=== PATIENT | female | born 1950 | race Caucasian/White ===

== ENCOUNTER 2021-11-20 05:50 | Inpatient (IN) | payer OTHER ==
[~2021-11-20] VITALS: Ht 162.6 cm; Wt 86.1 kg
[2021-11-20] MEDS ORDERED: ALBUTEROL SULF 2.5 MG/0.5ML(0.5%) NEB SOLN NEB ONE (06:15)
[2021-11-20] MEDS ORDERED: IPRATROPIUM BROM 0.5 MG/2.5ML INH SOL NEB ONE (06:15)
[2021-11-20] MEDS ORDERED: methylPREDNISolone SOD SUCC 125 MG/2 ML VL IV ONE (06:45)
[2021-11-20 07:22] LABS: Basophils # (auto) 0 10 ^3/uL (0-0.2); Basophils % (auto) 0.6 % (0.0-2.0); Eosinophils # (auto) 0 10 ^3/uL (0-0.8); Eosinophils % (auto) 0.3 % (0.0-7.0); Hematocrit 42.5 % (36.0-46.0); Hemoglobin 14.3 g/dL (12.2-16.2); Lymphocytes # (auto) 1.5 10 ^3/uL (0.4-5.4); Lymphocytes % (auto) 20.5 % (10.0-50.0); Mean Corpuscular Hemoglobin 30.5 pg (28.0-32.0); Mean Corpuscular Hgb Conc. 33.8 g/dL (32.0-36.0); Mean Corpuscular Volume 90.2 fL (80.0-100.0); Monocytes # (auto) 0.4 10 ^3/uL (0-1.3); Monocytes % (auto) 5.6 % (0.0-12.0); Neutrophils # (auto) 5.5 10 ^3/uL (1.6-8.6); Nucleated Red Blood Cells % 0.1 %; Red Blood Cells 4.71 10^6/uL (4.0-5.20); Red Cell Distribution Width 14.9 % (11.8-14.3); White Blood Cell 7.6 10^3/uL (4.4-10.8)
[2021-11-20 07:52] LABS: Albumin 2.9 g/dL (3.4-5.0); Calcium 8.1 mg/dL (8.5-10.1)
[2021-11-20 07:54] LABS: BUN/Creatinine Ratio 16.4; Bilirubin, Total 0.2 mg/dL (0.2-1.0); Total Protein 6.2 g/dL (6.4-8.2)
[2021-11-20] MEDS ORDERED: NOREPINEPHRINE 8 MG/250ML KIT 250 ML IV SCH (09:45)
[2021-11-20] MEDS ORDERED: MORPHINE SULFATE 4 MG/ML SYR/VIAL IV ONE (10:00)
[2021-11-20] MEDS ORDERED: ONDANSETRON HCL 4 MG/2 ML VIAL IV ONE (10:00)
[2021-11-20] MEDS ORDERED: ENOXAPARIN SOD 100 MG/1 ML SYRINGE SC ONE (10:00)
[2021-11-20] MEDS ORDERED: ONDANSETRON HCL 4 MG/2 ML VIAL IV PRN (11:30)
[2021-11-20] MEDS ORDERED: NITROGLYCERIN 0.2MG/HR TOPICAL PATCH TD ONE (11:30)
[2021-11-20] MEDS ORDERED: AZITHROMYCIN 500MG/ 250ML 250 ML IV ONE (11:30)
[2021-11-20] MEDS ORDERED: SODIUM CHLORIDE 0.9% 1,000 ML IV ONE (11:30)
[2021-11-20] MEDS ORDERED: MORPHINE SULFATE INJECTION 2 MG/ML SYRG IV PRN ×2 (11:30→13:45)
[2021-11-20] MEDS ORDERED: NITROGLYCERIN 0.4 MG SL TAB SL PRN (11:30)
[2021-11-20] MEDS ORDERED: NICOTINE 21MG/24 HR TOPICAL PATCH TD ONE (11:30)
[2021-11-20] MEDS ORDERED: cefTRIAXone 1GM/50ML D5W 50 ML IV ONE (11:30)
[2021-11-20] MEDS: IPRATROPIUM BROM 0.5 MG/2.5ML INH SOL NEB SCH ×2 (12:09→17:21)
[2021-11-20] MEDS: ALBUTEROL SULF 2.5 MG/0.5ML(0.5%) NEB SOLN NEB PRN ×2 (12:09→17:21)
[2021-11-20 12:19] VITALS: BP 144/79
[2021-11-20 12:35] LABS: Cholesterol 147 mg/dL (< 200); Triglycerides 126 mg/dL (< 150)
[2021-11-20 12:38] LABS: HDL Cholesterol 63 mg/dL (40-59); LDL Cholesterol 70 mg/dL (< 100)
[2021-11-20] MEDS: MORPHINE SULFATE INJECTION 2 MG/ML SYRG IV PRN ×2 (13:50→20:59)
[2021-11-20] MEDS ORDERED: FUROSEMIDE 100 MG/10ML VIAL IV ONE (15:15)
[2021-11-20 18:24] LABS: Urine Bacteria FEW /hpf (None Seen); Urine Blood Negative /uL (Negative); Urine Specific Gravity 1.014 (1.001-1.035); Urine WBC 1 /hpf (0 - 5)
[2021-11-21] MEDS: MORPHINE SULFATE INJECTION 2 MG/ML SYRG IV PRN ×6 (01:21→21:52)
[2021-11-21 05:00] VITALS: BP 152/84
[2021-11-21 05:30] VITALS: BP 152/84
[2021-11-21] MEDS ORDERED: FLUO40CA PO (06:01)
[2021-11-21] MEDS ORDERED: PENT100C PO (06:01)
[2021-11-21] MEDS ORDERED: GABA-339 PO (06:01)
[2021-11-21] MEDS ORDERED: FUR20T PO (06:01)
[2021-11-21] MEDS ORDERED: LEVO137T3 PO (06:01)
[2021-11-21] MEDS ORDERED: PERCOT PO (06:01)
[2021-11-21] MEDS ORDERED: DICL75TA4 PO (06:01)
[2021-11-21] MEDS ORDERED: BUDE0.5S NEB (06:01)
[2021-11-21] MEDS ORDERED: POTA-180 PO (06:01)
[2021-11-21] MEDS ORDERED: FLUT50SP NAS (06:01)
[2021-11-21] MEDS ORDERED: ONDA-180 PO (06:01)
[2021-11-21] MEDS ORDERED: SACU1TAB PO (06:01)
[2021-11-21] MEDS ORDERED: CARV12.544 PO (06:01)
[2021-11-21] MEDS ORDERED: ATOR-47 PO (06:01)
[2021-11-21] MEDS: ALBUTEROL SULF 2.5 MG/0.5ML(0.5%) NEB SOLN NEB PRN ×2 (07:20→18:28)
[2021-11-21] MEDS: IPRATROPIUM BROM 0.5 MG/2.5ML INH SOL NEB SCH ×3 (07:20→18:28)
[2021-11-21 07:58] LABS: Basophils # (auto) 0 10 ^3/uL (0-0.2); Basophils % (auto) 0.3 % (0.0-2.0); Eosinophils # (auto) 0 10 ^3/uL (0-0.8); Eosinophils % (auto) 0.1 % (0.0-7.0); Lymphocytes # (auto) 1.4 10 ^3/uL (0.4-5.4); Lymphocytes % (auto) 17.3 % (10.0-50.0); Mean Corpuscular Hemoglobin 30.8 pg (28.0-32.0); Mean Corpuscular Hgb Conc. 34.1 g/dL (32.0-36.0); Mean Corpuscular Volume 90.3 fL (80.0-100.0); Monocytes # (auto) 0.3 10 ^3/uL (0-1.3); Monocytes % (auto) 4.2 % (0.0-12.0); Neutrophils # (auto) 6.3 10 ^3/uL (1.6-8.6); Neutrophils % (auto) 78.1 % (37.0-80.0); Nucleated Red Blood Cells % 0.1 %; Red Blood Cells 4.54 10^6/uL (4.0-5.20); Red Cell Distribution Width 14.9 % (11.8-14.3)
[2021-11-21] MEDS ORDERED: ADENOSINE 73 MG in GIVE UN-DILUTED 0 ML IV ONE (08:00)
[2021-11-21 09:02] VITALS: BP 150/84
[2021-11-21 09:10] LABS: BUN/Creatinine Ratio 19.6; Bilirubin, Total 0.2 mg/dL (0.2-1.0); Total Protein 6.6 g/dL (6.4-8.2)
[2021-11-21] MEDS ORDERED: REGADENOSON 0.4 MG/5 ML SYRG IV ONE ×2 (09:45→09:51)
[2021-11-21] MEDS ORDERED: ENOXAPARIN SOD 100 MG/1 ML SYRINGE SC SCH (10:00)
[2021-11-21] MEDS ORDERED: CARVEDILOL 12.5 MG TAB PO SCH (10:00)
[2021-11-21] MEDS ORDERED: methylPREDNISolone SOD SUCC 40 MG/ML VL IV ONE (11:30)
[2021-11-21] MEDS: cefTRIAXone 1GM/50ML D5W 50 ML IV SCH (11:35)
[2021-11-21] MEDS: NICOTINE 21MG/24 HR TOPICAL PATCH TD SCH (11:35)
[2021-11-21] MEDS: ASPirin 81 mg TAB PO SCH (11:37)
[2021-11-21] MEDS: AMIODARONE HCL 200 MG TAB PO SCH ×2 (11:39→21:42)
[2021-11-21] MEDS ORDERED: FUROSEMIDE 20 MG/2 ML VIAL IV ONE (12:30)
[2021-11-21] MEDS: AZITHROMYCIN 500MG/ 250ML 250 ML IV SCH (12:45)
[2021-11-21 13:30] VITALS: BP 156/91
[2021-11-21 16:20] VITALS: BP 122/63
[2021-11-21] MEDS: CARVEDILOL 12.5 MG TAB PO SCH (21:42)
[2021-11-21] MEDS: PATIENTS OWN MEDICATION PO SCH ×2 (21:47→22:00)
[2021-11-21 22:00] VITALS: BP 132/52
[2021-11-21] MEDS ORDERED: ATORVASTATIN 20 MG TAB PO SCH (22:00)
[2021-11-21] MEDS ORDERED: SACUBITRIL-VALSARTAN 24mg/26mg TAB EACH EAR SCH (22:00)
[2021-11-22] MEDS: MORPHINE SULFATE INJECTION 2 MG/ML SYRG IV PRN ×2 (03:04→07:16)
[2021-11-22 05:00] VITALS: BP 142/64
[2021-11-22 06:03] LABS: Potassium 4.3 mmol/L (3.5-5.1)
[2021-11-22] MEDS: ALBUTEROL SULF 2.5 MG/0.5ML(0.5%) NEB SOLN NEB PRN ×2 (06:06→12:00)
[2021-11-22] MEDS: IPRATROPIUM BROM 0.5 MG/2.5ML INH SOL NEB SCH ×2 (06:06→12:00)
[2021-11-22 06:09] LABS: BUN/Creatinine Ratio 21.9; Calcium 8.6 mg/dL (8.5-10.1)
[2021-11-22] MEDS ORDERED: LEVOTHYROXINE SODIUM 50 MCG TAB PO SCH (07:00)
[2021-11-22 07:46] VITALS: BP 153/74
[2021-11-22] MEDS: ASPirin 81 mg TAB PO SCH (09:08)
[2021-11-22] MEDS: AMIODARONE HCL 200 MG TAB PO SCH (09:09)
[2021-11-22] MEDS: CARVEDILOL 12.5 MG TAB PO SCH (09:11)
[2021-11-22] MEDS: PATIENTS OWN MEDICATION PO SCH (09:12)
[2021-11-22] MEDS: NICOTINE 21MG/24 HR TOPICAL PATCH TD SCH (09:12)
[2021-11-22] MEDS: cefTRIAXone 1GM/50ML D5W 50 ML IV SCH (09:13)
[2021-11-22] MEDS ORDERED: predniSONE 20 MG TAB PO SCH (10:00)
[2021-11-22] MEDS ORDERED: methylPREDNISolone SOD SUCC 40 MG/ML VL IV SCH (10:00)
[2021-11-22] MEDS ORDERED: FLUoxetine HCL 20 MG CAP PO SCH (10:00)
[2021-11-22] MEDS: AZITHROMYCIN 500MG/ 250ML 250 ML IV SCH (10:15)
[2021-11-22] MEDS ORDERED: METH4PAK PO (11:22)
[2021-11-22] MEDS ORDERED: DOXY-338 PO (11:22)
[2021-11-22] MEDS ORDERED: AMIO200T33 PO (11:22)
[2021-11-22] MEDS ORDERED: APIX5TAB PO (11:22)
[2021-11-22 12:35] VITALS: BP 112/58
[2021-11-22 13:00] VITALS: BP 112/58
== END 2021-11-22 14:25 | disposition home or self-care (01) | DRG 280 ==
LOC: EDBD 05:50 → ER 05:50 → OVERFLOW 11:27 → TELE-EAST 11-21 03:30
PROVIDERS: ADMIT Registered Nurse; ATTEND Internal Medicine
DX: I21.4 Non-ST elevation (NSTEMI) myocardial infarction (principal); N17.0 Acute kidney failure with tubular necrosis; I50.21 Acute systolic (congestive) heart failure; I13.0 Hypertensive heart and chronic kidney disease with heart failure and stage 1 through stage 4 chronic kidney disease, or unspecified chronic kidney disease; J44.1 Chronic obstructive pulmonary disease with (acute) exacerbation; D68.69 Other thrombophilia; J96.10 Chronic respiratory failure, unspecified whether with hypoxia or hypercapnia; N18.4 Chronic kidney disease, stage 4 (severe); I42.0 Dilated cardiomyopathy; I25.5 Ischemic cardiomyopathy; E66.9 Obesity, unspecified; E78.5 Hyperlipidemia, unspecified; E88.09 Other disorders of plasma-protein metabolism, not elsewhere classified; G62.9 Polyneuropathy, unspecified; I25.10 Atherosclerotic heart disease of native coronary artery without angina pectoris; E03.9 Hypothyroidism, unspecified; I48.0 Paroxysmal atrial fibrillation; R79.89 Other specified abnormal findings of blood chemistry; F17.210 Nicotine dependence, cigarettes, uncomplicated; Z79.01 Long term (current) use of anticoagulants; Z68.32 Body mass index [BMI] 32.0-32.9, adult; Z90.49 Acquired absence of other specified parts of digestive tract; Z98.61 Coronary angioplasty status
CPT/HCPCS: 36415; 71045; 78452; 80048; 80053; 80061; 81001; 83605; 83735; 83880; 84443; 84484; 85025; 85379; 87040; 93005; 93017; 93306; 93970; 94640; 94644; 96365; 96375; 99291; G0378; J0153; J0696; J2405

== ENCOUNTER 2021-12-08 09:10 | Inpatient (IN) | payer OTHER ==
[~2021-12-08] VITALS: Ht 160 cm; Wt 90.7 kg
[~2021-12-08 09:10] MED LIST: AMIO200T33 PO; APIX5TAB PO; ATOR-47 PO; BUDE0.5S NEB; CARV12.544 PO; DICL75TA4 PO; DOXY-338 PO; FLUO40CA PO; FLUT50SP NAS; FUR20T PO; GABA-339 PO; LEVO137T3 PO; METH4PAK PO; ONDA-180 PO; PENT100C PO; PERCOT PO; POTA-180 PO; SACU1TAB PO
[2021-12-08] MEDS ORDERED: methylPREDNISolone SOD SUCC 125 MG/2 ML VL IV ONE (11:45)
[2021-12-08] MEDS ORDERED: ALBUTEROL SULF 2.5 MG/0.5ML(0.5%) NEB SOLN NEB ONE (11:45)
[2021-12-08] MEDS ORDERED: HYDROcodone-ACET 10/325MG TAB PO ONE (12:30)
[2021-12-08] MEDS ORDERED: MORPHINE SULFATE INJ 2 MG/ml SYRG IV PRN (12:45)
[2021-12-08] MEDS ORDERED: NITROGLYCERIN 0.4 MG SL TAB SL PRN (12:45)
[2021-12-08 12:57] LABS: Basophils # (auto) 0.1 10 ^3/uL (0-0.2); Basophils % (auto) 0.7 % (0.0-2.0); Eosinophils # (auto) 0.1 10 ^3/uL (0-0.8); Eosinophils % (auto) 0.8 % (0.0-7.0); Hematocrit 41.3 % (36.0-46.0); Hemoglobin 13.9 g/dL (12.2-16.2); Lymphocytes # (auto) 0.9 10 ^3/uL (0.4-5.4); Lymphocytes % (auto) 10.6 % (10.0-50.0); Mean Corpuscular Hemoglobin 30.5 pg (28.0-32.0); Mean Corpuscular Hgb Conc. 33.8 g/dL (32.0-36.0); Mean Corpuscular Volume 90.2 fL (80.0-100.0); Monocytes # (auto) 0.4 10 ^3/uL (0-1.3); Monocytes % (auto) 5.1 % (0.0-12.0); Neutrophils # (auto) 7.2 10 ^3/uL (1.6-8.6); Neutrophils % (auto) 82.8 % (37.0-80.0); Red Blood Cells 4.58 10^6/uL (4.0-5.20); Red Cell Distribution Width 15.4 % (11.8-14.3); White Blood Cell 8.7 10^3/uL (4.4-10.8)
[2021-12-08 13:18] LABS: Potassium 5.3 mmol/L (3.5-5.1)
[2021-12-08 13:24] LABS: Albumin 2.7 g/dL (3.4-5.0); BUN/Creatinine Ratio 15.1; Bilirubin, Total 0.3 mg/dL (0.2-1.0); Total Protein 6.5 g/dL (6.4-8.2)
[2021-12-08 13:39] VITALS: BP 140/60
[2021-12-08 14:32] LABS: Calcium 8.5 mg/dL (8.5-10.1)
== END 2021-12-08 14:25 | disposition left against medical advice (07) | DRG 193 ==
LOC: EDBD 09:10 → ER 09:10 → EDUNIT# 09:10 → TELE 12:42
PROVIDERS: ADMIT Hospitalist; ATTEND Hospitalist
PROC: 5A09357 Assistance with Respiratory Ventilation, Less than 24 Consecutive Hours, Continuous Positive Airway Pressure (ICD-10-PCS; principal; 2021-12-08)
DX: J18.9 Pneumonia, unspecified organism (principal); I50.23 Acute on chronic systolic (congestive) heart failure; J96.20 Acute and chronic respiratory failure, unspecified whether with hypoxia or hypercapnia; N17.0 Acute kidney failure with tubular necrosis; J44.1 Chronic obstructive pulmonary disease with (acute) exacerbation; I13.0 Hypertensive heart and chronic kidney disease with heart failure and stage 1 through stage 4 chronic kidney disease, or unspecified chronic kidney disease; I25.10 Atherosclerotic heart disease of native coronary artery without angina pectoris; Z53.29 Procedure and treatment not carried out because of patient's decision for other reasons; F17.210 Nicotine dependence, cigarettes, uncomplicated; Z79.01 Long term (current) use of anticoagulants; Z79.51 Long term (current) use of inhaled steroids; Z79.899 Other long term (current) drug therapy; Z82.0 Family history of epilepsy and other diseases of the nervous system; Z90.710 Acquired absence of both cervix and uterus; Z95.5 Presence of coronary angioplasty implant and graft; Z90.49 Acquired absence of other specified parts of digestive tract; I25.5 Ischemic cardiomyopathy; I27.9 Pulmonary heart disease, unspecified; I48.0 Paroxysmal atrial fibrillation; N18.32 Chronic kidney disease, stage 3b
CPT/HCPCS: 36415; 36600; 71045; 80053; 82805; 84484; 85025; 93005; 94660; 96374; 99291; G0378

== ENCOUNTER 2021-12-10 02:13 | Inpatient (IN) | payer OTHER ==
[~2021-12-10] VITALS: Ht 160 cm; Wt 87.5 kg
[2021-12-10 03:02] LABS: Basophils # (auto) 0.1 10 ^3/uL (0-0.2); Basophils % (auto) 0.6 % (0.0-2.0); Eosinophils # (auto) 0.1 10 ^3/uL (0-0.8); Hematocrit 39.3 % (36.0-46.0); Hemoglobin 13.1 g/dL (12.2-16.2); Lymphocytes # (auto) 1.8 10 ^3/uL (0.4-5.4); Lymphocytes % (auto) 20.3 % (10.0-50.0); Mean Corpuscular Hemoglobin 30.5 pg (28.0-32.0); Mean Corpuscular Hgb Conc. 33.4 g/dL (32.0-36.0); Mean Corpuscular Volume 91.3 fL (80.0-100.0); Monocytes # (auto) 0.4 10 ^3/uL (0-1.3); Monocytes % (auto) 3.9 % (0.0-12.0); Neutrophils # (auto) 6.7 10 ^3/uL (1.6-8.6); Neutrophils % (auto) 74.2 % (37.0-80.0); Red Blood Cells 4.31 10^6/uL (4.0-5.20); Red Cell Distribution Width 15.5 % (11.8-14.3)
[2021-12-10 03:25] LABS: Albumin 2.8 g/dL (3.4-5.0); Calcium 8.7 mg/dL (8.5-10.1); Potassium 4.9 mmol/L (3.5-5.1)
[2021-12-10 03:28] LABS: Bilirubin, Total 0.2 mg/dL (0.2-1.0); Total Protein 6.4 g/dL (6.4-8.2)
[2021-12-10] MEDS ORDERED: MORPHINE SULFATE 4 MG/ML SYR/VIAL IV ONE (04:00)
[2021-12-10] MEDS ORDERED: ONDANSETRON HCL 4 MG/2 ML VIAL IV ONE (04:00)
[2021-12-10] MEDS ORDERED: IPRATROPIUM BROM 0.5 MG/2.5ML INH SOL NEB ONE (06:15)
[2021-12-10] MEDS ORDERED: D5W 5% IV ONE (06:15)
[2021-12-10] MEDS ORDERED: DEXAMETHASONE IV ONE (06:15)
[2021-12-10] MEDS ORDERED: ALBUTEROL SULF 2.5 MG/0.5ML(0.5%) NEB SOLN NEB ONE (06:15)
[2021-12-10] MEDS ORDERED: NITROGLYCERIN 0.4 MG SL TAB SL PRN (10:45)
[2021-12-10] MEDS ORDERED: MORPHINE SULFATE INJ 2 MG/ml SYRG IV PRN (10:45)
[2021-12-10] MEDS ORDERED: ENOXAPARIN SOD 80 MG/0.8ML SYRINGE SC ONE (10:45)
[2021-12-10] MEDS: MORPHINE SULFATE INJ 2 MG/ml SYRG IV PRN ×3 (11:43→20:45)
[2021-12-10] MEDS ORDERED: ACETAMINOPHEN 325 MG TAB PO PRN (12:15)
[2021-12-10] MEDS ORDERED: HYDROcodone-ACET 5/325MG TAB PO PRN (12:15)
[2021-12-10] MEDS ORDERED: DOCUSATE SOD 100 MG CAP PO PRN (12:15)
[2021-12-10] MEDS ORDERED: FUROSEMIDE 100 MG/10ML VIAL IV ONE (12:15)
[2021-12-10] MEDS ORDERED: hydrALAZINE HCL 20 MG/ML VL IV PRN (12:15)
[2021-12-10] MEDS ORDERED: PROMETHAZINE-DM 5 ML ORAL SYRUP PO PRN (12:15)
[2021-12-10 13:08] LABS: Magnesium 2.3 mg/dL (1.6-2.6); Phosphorus 2.5 mg/dL (2.5-4.90)
[2021-12-10 15:03] LABS: INR 1.04 (0.9-1.15); Partial Thromboplastin Time 31.1 sec (23.6-33.0)
[2021-12-10] MEDS: methylPREDNISolone SOD SUCC 40 MG/ML VL IV SCH ×2 (15:32→22:43)
[2021-12-10] MEDS: AZITHROMYCIN 500MG/ 250ML 250 ML IV SCH (15:54)
[2021-12-10] MEDS: IPRATROPIUM BROM 0.5 MG/2.5ML INH SOL NEB SCH ×3 (16:04→22:11)
[2021-12-10] MEDS: ALBUTEROL SULF 2.5 MG/0.5ML(0.5%) NEB SOLN NEB PRN ×2 (16:04→18:20)
[2021-12-10 16:06] VITALS: BP 172/84
[2021-12-10] MEDS: ONDANSETRON HCL 4 MG/2 ML VIAL IV PRN (16:38)
[2021-12-10] MEDS: BUDESONIDE (INHALATION) 0.5 MG/2 ML NEB NEB SCH (18:20)
[2021-12-10 21:53] VITALS: BP 129/75
[2021-12-10] MEDS ORDERED: AMIODARONE HCL 200 MG TAB PO SCH (22:00)
[2021-12-10] MEDS ORDERED: ISOSORBIDE MONONITRATE 20 MG TAB PO SCH (22:00)
[2021-12-10] MEDS: AMIODARONE HCL 200 MG TAB PO SCH (22:43)
[2021-12-10] MEDS: APIXABAN 5 MG TAB PO SCH (22:44)
[2021-12-10] MEDS: FLUTICASONE PROP NASAL SPR 0.05 % (50MCG) 16GM SCH (22:44)
[2021-12-10] MEDS: CARVEDILOL 3.125 MG TAB PO SCH (22:44)
[2021-12-10] MEDS: POTASSIUM CHL 20 Meq TABLET PO SCH (22:45)
[2021-12-10] MEDS: SACUBITRIL-VALSARTAN 24mg/26mg TAB PO SCH (22:45)
[2021-12-10] MEDS: ATORVASTATIN 20 MG TAB PO SCH (22:45)
[2021-12-11] MEDS: MORPHINE SULFATE INJ 2 MG/ml SYRG IV PRN ×4 (01:11→14:39)
[2021-12-11] MEDS: IPRATROPIUM BROM 0.5 MG/2.5ML INH SOL NEB SCH ×5 (02:02→21:57)
[2021-12-11 04:59] VITALS: BP 142/87
[2021-12-11] MEDS: methylPREDNISolone SOD SUCC 40 MG/ML VL IV SCH ×2 (05:50→14:39)
[2021-12-11] MEDS: FUROSEMIDE 20 MG/2 ML VIAL IV SCH ×2 (05:50→18:22)
[2021-12-11 06:03] LABS: Basophils # (auto) 0 10 ^3/uL (0-0.2); Eosinophils # (auto) 0 10 ^3/uL (0-0.8); Hematocrit 41.9 % (36.0-46.0); Hemoglobin 14.3 g/dL (12.2-16.2); Lymphocytes # (auto) 0.4 10 ^3/uL (0.4-5.4); Lymphocytes % (auto) 6.3 % (10.0-50.0); Mean Corpuscular Hgb Conc. 34.2 g/dL (32.0-36.0); Mean Corpuscular Volume 90.6 fL (80.0-100.0); Monocytes # (auto) 0 10 ^3/uL (0-1.3); Monocytes % (auto) 0.6 % (0.0-12.0); Neutrophils # (auto) 6.1 10 ^3/uL (1.6-8.6); Neutrophils % (auto) 93.1 % (37.0-80.0); Nucleated Red Blood Cells % 0.1 %; Red Blood Cells 4.63 10^6/uL (4.0-5.20); Red Cell Distribution Width 15.5 % (11.8-14.3); White Blood Cell 6.5 10^3/uL (4.4-10.8)
[2021-12-11 06:25] LABS: INR 1.02 (0.9-1.15)
[2021-12-11 06:28] LABS: Albumin 2.7 g/dL (3.4-5.0); BUN/Creatinine Ratio 20.4; Bilirubin, Total 0.3 mg/dL (0.2-1.0); CRP High Sensitivity 0.51 mg/dL (< 0.3); Calcium 8.9 mg/dL (8.5-10.1); Magnesium 2.2 mg/dL (1.6-2.6); Phosphorus 2.3 mg/dL (2.5-4.90); Total Protein 6.8 g/dL (6.4-8.2); Uric Acid 5.4 mg/dL (2.6-6.0)
[2021-12-11] MEDS ORDERED: LEVOTHYROXINE SODIUM 25 MCG TAB PO SCH (07:00)
[2021-12-11 09:00] VITALS: BP 125/75
[2021-12-11] MEDS: FLUTICASONE PROP NASAL SPR 0.05 % (50MCG) 16GM SCH ×2 (09:49→22:00)
[2021-12-11] MEDS: SACUBITRIL-VALSARTAN 24mg/26mg TAB PO SCH ×2 (09:50→21:59)
[2021-12-11] MEDS: APIXABAN 5 MG TAB PO SCH ×2 (09:51→21:58)
[2021-12-11] MEDS: CARVEDILOL 3.125 MG TAB PO SCH ×2 (09:53→21:58)
[2021-12-11] MEDS: AZITHROMYCIN 500MG/ 250ML 250 ML IV SCH (09:57)
[2021-12-11] MEDS: POTASSIUM CHL 20 Meq TABLET PO SCH (09:58)
[2021-12-11] MEDS ORDERED: FAMOTIDINE (10MG/ML) 2ML VL IV SCH (10:00)
[2021-12-11] MEDS: AMIODARONE HCL 200 MG TAB PO SCH ×2 (10:30→21:57)
[2021-12-11 13:00] VITALS: BP 142/94
[2021-12-11] MEDS: BUDESONIDE (INHALATION) 0.5 MG/2 ML NEB NEB SCH ×2 (16:51→18:18)
[2021-12-11 16:54] LABS: Free T4 (Free Thyroxine) 1.16 ng/dL (0.89-1.76); T3 Total 0.43 ng/mL (0.60-1.81)
[2021-12-11 17:00] VITALS: BP 127/76
[2021-12-11] MEDS: traMADol HCL 50 MG TAB PO PRN (18:15)
[2021-12-11] MEDS: ALBUTEROL SULF 2.5 MG/0.5ML(0.5%) NEB SOLN NEB PRN (18:18)
[2021-12-11] MEDS: ATORVASTATIN 20 MG TAB PO SCH (21:59)
[2021-12-11 22:00] VITALS: BP 147/87
[2021-12-12] VITALS (9 sets, daily range): BP systolic 130–158; BP diastolic 79–96
[2021-12-12] MEDS: IPRATROPIUM BROM 0.5 MG/2.5ML INH SOL NEB SCH ×6 (02:00→22:44)
[2021-12-12] MEDS: traMADol HCL 50 MG TAB PO PRN ×2 (02:06→10:23)
[2021-12-12] MEDS: FUROSEMIDE 20 MG/2 ML VIAL IV SCH ×2 (06:01→18:21)
[2021-12-12 06:45] LABS: BUN/Creatinine Ratio 21.7; Calcium 8.9 mg/dL (8.5-10.1); Magnesium 2.4 mg/dL (1.6-2.6); Potassium 4.4 mmol/L (3.5-5.1)
[2021-12-12] MEDS: AZITHROMYCIN 500MG/ 250ML 250 ML IV SCH (09:10)
[2021-12-12] MEDS: FLUTICASONE PROP NASAL SPR 0.05 % (50MCG) 16GM SCH ×2 (09:11→22:35)
[2021-12-12] MEDS: AMIODARONE HCL 200 MG TAB PO SCH ×2 (09:11→22:26)
[2021-12-12] MEDS: CARVEDILOL 3.125 MG TAB PO SCH ×2 (09:12→22:26)
[2021-12-12] MEDS: APIXABAN 5 MG TAB PO SCH ×2 (09:12→22:26)
[2021-12-12] MEDS: SACUBITRIL-VALSARTAN 24mg/26mg TAB PO SCH ×2 (09:12→22:25)
[2021-12-12] MEDS: BUDESONIDE (INHALATION) 0.5 MG/2 ML NEB NEB SCH ×2 (10:41→18:17)
[2021-12-12] MEDS ORDERED: SODIUM CHL 0.9% 0 ML ONE (13:57)
[2021-12-12] MEDS ORDERED: MIDAZOLAM HCL 2MG/2ML 2ml VIAL (1mg/ml) ONE (13:57)
[2021-12-12] MEDS ORDERED: ANGIOMAX 250 MG VIAL IV ONE (13:57)
[2021-12-12] MEDS ORDERED: fentaNYL CITRATE 100 MCG/2 ML VL ONE (13:57)
[2021-12-12] MEDS ORDERED: LIDOCAINE 2%HCL (LOCAL ANESTH.) INJ 10ml MDV ONE (13:58)
[2021-12-12] MEDS ORDERED: IOHEXOL 350 MG/ML 100ML IJ ONE (14:54)
[2021-12-12] MEDS: HYDROmorphone HCL 2 MG/ML VL/or syr IV PRN ×2 (15:42→22:34)
[2021-12-12] MEDS: ALBUTEROL SULF 2.5 MG/0.5ML(0.5%) NEB SOLN NEB PRN ×2 (18:17→22:44)
[2021-12-12] MEDS: ATORVASTATIN 20 MG TAB PO SCH (22:34)
[2021-12-13] MEDS: traMADol HCL 50 MG TAB PO PRN ×2 (02:08→13:46)
[2021-12-13] MEDS: IPRATROPIUM BROM 0.5 MG/2.5ML INH SOL NEB SCH ×4 (02:29→14:56)
[2021-12-13] MEDS: ALBUTEROL SULF 2.5 MG/0.5ML(0.5%) NEB SOLN NEB PRN ×3 (02:30→14:56)
[2021-12-13] MEDS: HYDROmorphone HCL 2 MG/ML VL/or syr IV PRN ×2 (04:37→10:44)
[2021-12-13 05:00] VITALS: BP 132/76
[2021-12-13] MEDS: FUROSEMIDE 20 MG/2 ML VIAL IV SCH (05:51)
[2021-12-13 08:00] VITALS: BP 117/73
[2021-12-13] MEDS: AZITHROMYCIN 500MG/ 250ML 250 ML IV SCH (08:56)
[2021-12-13] MEDS: AMIODARONE HCL 200 MG TAB PO SCH (08:56)
[2021-12-13] MEDS: FLUTICASONE PROP NASAL SPR 0.05 % (50MCG) 16GM SCH (08:56)
[2021-12-13] MEDS: CARVEDILOL 3.125 MG TAB PO SCH (08:57)
[2021-12-13] MEDS: SACUBITRIL-VALSARTAN 24mg/26mg TAB PO SCH (08:58)
[2021-12-13] MEDS: APIXABAN 5 MG TAB PO SCH (08:58)
[2021-12-13] MEDS: BUDESONIDE (INHALATION) 0.5 MG/2 ML NEB NEB SCH (10:54)
[2021-12-13] MEDS: ONDANSETRON HCL 4 MG/2 ML VIAL IV PRN (11:42)
[2021-12-13 12:00] VITALS: BP 104/73
[2021-12-13 15:31] VITALS: BP 104/73
== END 2021-12-13 15:55 | disposition home or self-care (01) | DRG 280 ==
LOC: EDBD 02:13 → ER 02:13 → TELE 10:41 → TELE-EAST 20:00
PROVIDERS: ADMIT Hospitalist; ATTEND Internal Medicine
PROC: 4A023N7 Measurement of Cardiac Sampling and Pressure, Left Heart, Percutaneous Approach (ICD-10-PCS; principal; 2021-12-12)
PROC: B2111ZZ Fluoroscopy of Multiple Coronary Arteries using Low Osmolar Contrast (ICD-10-PCS; 2021-12-12)
PROC: B2151ZZ Fluoroscopy of Left Heart using Low Osmolar Contrast (ICD-10-PCS; 2021-12-12)
PROC: B41C1ZZ Fluoroscopy of Pelvic Arteries using Low Osmolar Contrast (ICD-10-PCS; 2021-12-12)
DX: I21.4 Non-ST elevation (NSTEMI) myocardial infarction (principal); J96.20 Acute and chronic respiratory failure, unspecified whether with hypoxia or hypercapnia; I50.41 Acute combined systolic (congestive) and diastolic (congestive) heart failure; I13.0 Hypertensive heart and chronic kidney disease with heart failure and stage 1 through stage 4 chronic kidney disease, or unspecified chronic kidney disease; J44.0 Chronic obstructive pulmonary disease with (acute) lower respiratory infection; F11.20 Opioid dependence, uncomplicated; N17.9 Acute kidney failure, unspecified; J44.1 Chronic obstructive pulmonary disease with (acute) exacerbation; J84.9 Interstitial pulmonary disease, unspecified; E03.9 Hypothyroidism, unspecified; E78.5 Hyperlipidemia, unspecified; N18.32 Chronic kidney disease, stage 3b; G62.9 Polyneuropathy, unspecified; F17.200 Nicotine dependence, unspecified, uncomplicated; G89.4 Chronic pain syndrome; I25.119 Atherosclerotic heart disease of native coronary artery with unspecified angina pectoris; I25.5 Ischemic cardiomyopathy; I27.9 Pulmonary heart disease, unspecified; I48.0 Paroxysmal atrial fibrillation; M54.9 Dorsalgia, unspecified; E66.01 Morbid (severe) obesity due to excess calories; R79.89 Other specified abnormal findings of blood chemistry; I50.82 Biventricular heart failure; M19.90 Unspecified osteoarthritis, unspecified site; Z79.899 Other long term (current) drug therapy; Z82.0 Family history of epilepsy and other diseases of the nervous system; Z90.710 Acquired absence of both cervix and uterus; Z79.51 Long term (current) use of inhaled steroids; Z79.01 Long term (current) use of anticoagulants; Z68.34 Body mass index [BMI] 34.0-34.9, adult
CPT/HCPCS: 36415; 36600; 71045; 73030; 75710; 80048; 80053; 80061; 82728; 82805; 83036; 83615; 83690; 83735; 83880; 84100; 84439; 84480; 84484; 84550; 85025; 85379; 85610; 85652; 85730; 86141; 87040; 87081; 93005; 93458; 94640; 96365; 96367; 96372; 96375; 96376; 99152; 99153; 99291; G0378; J1100; J2001; J2250; J2405; J3490; J7060

== ENCOUNTER 2022-01-11 03:26 | Inpatient (IN) | payer OTHER ==
[~2022-01-11] VITALS: Ht 162.6 cm; Wt 90.4 kg
[~2022-01-11 03:26] MED LIST changes: -CARV12.544 PO; -DICL75TA4 PO; -DOXY-338 PO; -METH4PAK PO; -POTA-180 PO
[2022-01-11] MEDS ORDERED: FUROSEMIDE 100 MG/10ML VIAL IV ONE (03:30)
[2022-01-11] MEDS ORDERED: NITROGLYCERIN 0.4 MG SL TAB SL ONE (03:30)
[2022-01-11] MEDS ORDERED: methylPREDNISolone SOD SUCC 125 MG/2 ML VL IV ONE (03:30)
[2022-01-11] MEDS ORDERED: methylPREDNISolone SOD SUCC 125 MG/2 ML VL ONE (03:31)
[2022-01-11] MEDS ORDERED: FUROSEMIDE INJECTION 10 ML ONE (03:32)
[2022-01-11] MEDS ORDERED: ALBUTEROL SULF 2.5 MG/0.5ML(0.5%) NEB SOLN ONE (03:42)
[2022-01-11] MEDS ORDERED: IPRATROPIUM BROM 0.5 MG/2.5ML INH SOL ONE (03:42)
[2022-01-11 04:33] LABS: Basophils # (auto) 0.1 10 ^3/uL (0-0.2); Basophils % (auto) 0.8 % (0.0-2.0); Eosinophils # (auto) 0.4 10 ^3/uL (0-0.8); Hematocrit 44.7 % (36.0-46.0); Hemoglobin 13.8 g/dL (12.2-16.2); Lymphocytes # (auto) 4.8 10 ^3/uL (0.4-5.4); Lymphocytes % (auto) 43.5 % (10.0-50.0); Mean Corpuscular Hemoglobin 29.3 pg (28.0-32.0); Mean Corpuscular Volume 94.8 fL (80.0-100.0); Monocytes # (auto) 0.8 10 ^3/uL (0-1.3); Monocytes % (auto) 6.9 % (0.0-12.0); Neutrophils % (auto) 44.8 % (37.0-80.0); Nucleated Red Blood Cells % 0.1 %; Red Blood Cells 4.72 10^6/uL (4.0-5.20); Red Cell Distribution Width 15.7 % (11.8-14.3); White Blood Cell 11.1 10^3/uL (4.4-10.8)
[2022-01-11 04:47] LABS: BUN/Creatinine Ratio 11.2; Calcium 8.4 mg/dL (8.5-10.1); Potassium 4.6 mmol/L (3.5-5.1)
[2022-01-11 06:00] VITALS: BP 141/78
[2022-01-11] MEDS ORDERED: ZOLPIDEM TARTRATE 5 MG TAB PO PRN ×2 (06:30→07:30)
[2022-01-11] MEDS ORDERED: DEXTROSE (50%) 50ML SYRG IV PRN ×2 (06:30→07:30)
[2022-01-11] MEDS ORDERED: ONDANSETRON HCL 4 MG/2 ML VIAL IV PRN ×2 (06:30→07:30)
[2022-01-11] MEDS ORDERED: ACETAMINOPHEN 325 MG TAB PO PRN (06:30)
[2022-01-11] MEDS ORDERED: MORPHINE SULFATE INJ 2 MG/ml SYRG IV PRN (06:30)
[2022-01-11 08:35] VITALS: BP 140/80
[2022-01-11] MEDS ORDERED: CLOPIDOGREL BISULFATE 75 MG TAB PO SCH (10:00)
[2022-01-11] MEDS ORDERED: ENOXAPARIN SOD 100 MG/1 ML SYRINGE SC SCH (10:00)
[2022-01-11] MEDS ORDERED: LISINOPRIL 10 MG TAB PO SCH (10:00)
[2022-01-11] MEDS: FUROSEMIDE 40 MG/4 ML VIAL IV SCH (10:34)
[2022-01-11] MEDS: methylPREDNISolone SOD SUCC 40 MG/ML VL IV SCH (10:35)
[2022-01-11] MEDS: ASPirin 81 mg TAB PO SCH (10:35)
[2022-01-11] MEDS: cefTRIAXone 1GM/50ML D5W 50 ML IV SCH (10:35)
[2022-01-11] MEDS: METOPROLOL TARTRATE 25 MG TAB PO SCH ×2 (10:36→22:41)
[2022-01-11] MEDS: DOCUSATE SOD 100 MG CAP PO SCH (10:36)
[2022-01-11] MEDS ORDERED: MORPHINE SULFATE INJ 2 MG/ml SYRG IV ONE (11:00)
[2022-01-11] MEDS ORDERED: EPINEPHrine HCL 1 MG/10 ML SYRG IV ONE (11:39)
[2022-01-11] MEDS ORDERED: SODIUM BICARBONATE 8.4% INJ 50ML SYRINGE IV ONE (11:39)
[2022-01-11] MEDS ORDERED: AMIODARONE HCL (50 MG/ ML) 3 ML VIAL IV ONE (11:39)
[2022-01-11] MEDS ORDERED: CALCIUM CHLOR(10%) 100MG/ML 10ML SYRINGE IV ONE (11:39)
[2022-01-11] MEDS: AZITHROMYCIN 500MG/ 250ML 250 ML IV SCH (11:58)
[2022-01-11] MEDS ORDERED: ACCU-CHEK COMFORT CURVE STRIP VI SCH (12:00)
[2022-01-11] MEDS ORDERED: InsuLIN REG 1unit/0.01ml Soln (100units/ml) SC SCH (12:00)
[2022-01-11] MEDS: IPRATROPIUM BROM 0.5 MG/2.5ML INH SOL NEB SCH ×3 (14:25→22:14)
[2022-01-11] MEDS: ALBUTEROL SULF 2.5 MG/0.5ML(0.5%) NEB SOLN NEB SCH ×3 (14:25→22:14)
[2022-01-11] MEDS: MORPHINE SULFATE INJ 2 MG/ml SYRG IV PRN ×2 (16:46→20:53)
[2022-01-11 19:59] VITALS: BP 147/75
[2022-01-11] MEDS ORDERED: ATORVASTATIN 20 MG TAB PO SCH (22:00)
[2022-01-11] MEDS: APIXABAN 5 MG TAB PO SCH (22:40)
[2022-01-11] MEDS: AMIODARONE HCL 200 MG TAB PO SCH (22:40)
[2022-01-12] MEDS: FUROSEMIDE 40 MG/4 ML VIAL IV SCH ×2 (00:03→10:49)
[2022-01-12] MEDS: ALBUTEROL SULF 2.5 MG/0.5ML(0.5%) NEB SOLN NEB SCH ×4 (02:20→14:19)
[2022-01-12] MEDS: IPRATROPIUM BROM 0.5 MG/2.5ML INH SOL NEB SCH ×4 (02:20→14:19)
[2022-01-12 05:02] VITALS: BP 114/60
[2022-01-12 06:05] LABS: Urine Bacteria NONE SEEN /hpf (None Seen); Urine Blood Negative /uL (Negative); Urine Specific Gravity 1.007 (1.001-1.035); Urine WBC <1 /hpf (0 - 5)
[2022-01-12 07:21] LABS: Basophils # (auto) 0 10 ^3/uL (0-0.2); Basophils % (auto) 0.2 % (0.0-2.0); Eosinophils # (auto) 0 10 ^3/uL (0-0.8); Hematocrit 42.5 % (36.0-46.0); Hemoglobin 14.2 g/dL (12.2-16.2); Lymphocytes # (auto) 1.2 10 ^3/uL (0.4-5.4); Lymphocytes % (auto) 12.6 % (10.0-50.0); Mean Corpuscular Hemoglobin 29.8 pg (28.0-32.0); Mean Corpuscular Hgb Conc. 33.5 g/dL (32.0-36.0); Mean Corpuscular Volume 88.8 fL (80.0-100.0); Monocytes # (auto) 0.5 10 ^3/uL (0-1.3); Monocytes % (auto) 5.1 % (0.0-12.0); Neutrophils # (auto) 8.2 10 ^3/uL (1.6-8.6); Neutrophils % (auto) 82.1 % (37.0-80.0); Red Blood Cells 4.78 10^6/uL (4.0-5.20); Red Cell Distribution Width 15.5 % (11.8-14.3); White Blood Cell 9.9 10^3/uL (4.4-10.8)
[2022-01-12 07:37] LABS: Potassium 3.9 mmol/L (3.5-5.1)
[2022-01-12 07:51] LABS: BUN/Creatinine Ratio 15.7; Calcium 8.9 mg/dL (8.5-10.1); Magnesium 2.3 mg/dL (1.6-2.6)
[2022-01-12 09:00] VITALS: BP 158/74
[2022-01-12] MEDS: cefTRIAXone 1GM/50ML D5W 50 ML IV SCH (10:48)
[2022-01-12] MEDS: methylPREDNISolone SOD SUCC 40 MG/ML VL IV SCH (10:49)
[2022-01-12] MEDS: ASPirin 81 mg TAB PO SCH (10:49)
[2022-01-12] MEDS: DOCUSATE SOD 100 MG CAP PO SCH (10:50)
[2022-01-12] MEDS: METOPROLOL TARTRATE 25 MG TAB PO SCH (10:50)
[2022-01-12] MEDS: AMIODARONE HCL 200 MG TAB PO SCH (10:50)
[2022-01-12] MEDS: MORPHINE SULFATE INJ 2 MG/ml SYRG IV PRN (10:57)
[2022-01-12] MEDS: APIXABAN 5 MG TAB PO SCH (10:58)
[2022-01-12] MEDS: AZITHROMYCIN 500MG/ 250ML 250 ML IV SCH ×2 (11:00→15:05)
[2022-01-12] MEDS ORDERED: ALPRAZolam 0.5 MG TAB PO ONE (11:15)
[2022-01-12] MEDS ORDERED: FURO1TAB31 PO (12:34)
[2022-01-12] MEDS ORDERED: ALBUAER3 IN (12:34)
[2022-01-12] MEDS ORDERED: PRED20TA2 PO (12:34)
[2022-01-12] MEDS ORDERED: ALPR0.25 PO (12:37)
[2022-01-12 13:00] VITALS: BP 143/71
[2022-01-12] MEDS ORDERED: SACUBITRIL-VALSARTAN 24mg/26mg TAB PO SCH (23:00)
== END 2022-01-12 15:27 | disposition home or self-care (01) | DRG 280 ==
LOC: EDBD 03:26 → ER 03:26 → OVERFLOW 06:29 → TELE-WESTW 19:45
PROVIDERS: ADMIT Hospitalist; ATTEND Hospitalist
PROC: 5A09357 Assistance with Respiratory Ventilation, Less than 24 Consecutive Hours, Continuous Positive Airway Pressure (ICD-10-PCS; principal; 2022-01-11)
PROC: 5A09357 Assistance with Respiratory Ventilation, Less than 24 Consecutive Hours, Continuous Positive Airway Pressure (ICD-10-PCS; 2022-01-12)
DX: I13.0 Hypertensive heart and chronic kidney disease with heart failure and stage 1 through stage 4 chronic kidney disease, or unspecified chronic kidney disease (principal); I50.23 Acute on chronic systolic (congestive) heart failure; I21.A1 Myocardial infarction type 2; J96.20 Acute and chronic respiratory failure, unspecified whether with hypoxia or hypercapnia; J44.1 Chronic obstructive pulmonary disease with (acute) exacerbation; I42.8 Other cardiomyopathies; I48.0 Paroxysmal atrial fibrillation; I25.10 Atherosclerotic heart disease of native coronary artery without angina pectoris; N18.31 Chronic kidney disease, stage 3a; E78.5 Hyperlipidemia, unspecified; Z20.822 Contact with and (suspected) exposure to COVID-19; E03.9 Hypothyroidism, unspecified; F41.9 Anxiety disorder, unspecified; E66.9 Obesity, unspecified; Z68.34 Body mass index [BMI] 34.0-34.9, adult; Z88.8 Allergy status to other drugs, medicaments and biological substances; Z90.49 Acquired absence of other specified parts of digestive tract; Z98.61 Coronary angioplasty status; Z90.710 Acquired absence of both cervix and uterus
CPT/HCPCS: 36415; 36600; 71045; 80048; 80061; 81001; 82306; 82805; 83036; 83735; 83880; 84443; 84484; 85025; 93005; 94640; 94660; 96365; 96375; 97163; 99291; G0378; J0696

== ENCOUNTER 2022-06-02 06:42 | Inpatient (IN) | payer OTHER ==
[~2022-06-02] VITALS: Ht 162.6 cm; Wt 97.3 kg
[~2022-06-02 06:42] MED LIST changes: +ALBUAER3 IN; +ALPR0.25 PO; -FUR20T PO; +FURO1TAB31 PO; +PRED20TA2 PO
[2022-06-02 07:12] LABS: Basophils # (auto) 0 10 ^3/uL (0-0.2); Basophils % (auto) 0.3 % (0.0-2.0); Eosinophils # (auto) 0.1 10 ^3/uL (0-0.8); Eosinophils % (auto) 0.5 % (0.0-7.0); Hematocrit 42.3 % (36.0-46.0); Hemoglobin 13.8 g/dL (12.2-16.2); Lymphocytes # (auto) 1.8 10 ^3/uL (0.4-5.4); Lymphocytes % (auto) 15.8 % (10.0-50.0); Mean Corpuscular Hemoglobin 29.2 pg (28.0-32.0); Mean Corpuscular Hgb Conc. 32.6 g/dL (32.0-36.0); Mean Corpuscular Volume 89.5 fL (80.0-100.0); Monocytes # (auto) 0.6 10 ^3/uL (0-1.3); Monocytes % (auto) 5.2 % (0.0-12.0); Neutrophils # (auto) 8.9 10 ^3/uL (1.6-8.6); Neutrophils % (auto) 78.2 % (37.0-80.0); Nucleated Red Blood Cells % 0.1 %; Red Blood Cells 4.73 10^6/uL (4.0-5.20); Red Cell Distribution Width 15.5 % (11.8-14.3); White Blood Cell 11.3 10^3/uL (4.4-10.8)
[2022-06-02] MEDS ORDERED: methylPREDNISolone SOD SUCC 125 MG/2 ML VL IV ONE (07:15)
[2022-06-02] MEDS ORDERED: FUROSEMIDE 40 MG/4 ML VIAL IV ONE (07:15)
[2022-06-02 07:25] LABS: INR 1.08 (0.9-1.15); Partial Thromboplastin Time 26.3 sec (24.6-33.4)
[2022-06-02 07:51] LABS: Albumin 3.3 g/dL (3.4-5.0); Bilirubin, Total 0.5 mg/dL (0.2-1.0); Magnesium 2.2 mg/dL (1.6-2.6); Potassium 4.6 mmol/L (3.5-5.1); Total Protein 6.5 g/dL (6.4-8.2)
[2022-06-02 07:57] LABS: BUN/Creatinine Ratio 15.8
[2022-06-02] MEDS ORDERED: ENOXAPARIN SOD 100 MG/1 ML SYRINGE SC ONE (08:15)
[2022-06-02 08:39] LABS: Urine Bacteria FEW /hpf (None Seen); Urine Blood Negative /uL (Negative); Urine Hyaline Cast FEW /lpf (0 - 2); Urine Mucus FEW (None Seen); Urine Specific Gravity 1.015 (1.001-1.035); Urine WBC 14 /hpf (0 - 5)
[2022-06-02] MEDS ORDERED: ACETAMINOPHEN 325 MG TAB PO PRN (10:30)
[2022-06-02] MEDS ORDERED: PATIENTS OWN MEDICATION (Gabapentin 600 MG) PO PRN (11:00)
[2022-06-02] MEDS ORDERED: cefTRIAXone 1GM/50ML D5W 50 ML IV ONE (11:00)
[2022-06-02] MEDS ORDERED: ASPirin 325 MG TAB PO ONE (11:15)
[2022-06-02] MEDS ORDERED: hydrALAZINE HCL 20 MG/ML VL IV PRN (11:15)
[2022-06-02] MEDS ORDERED: CARVEDILOL 12.5 MG TAB PO SCH (11:15)
[2022-06-02 11:45] LABS: Cholesterol 159 mg/dL (< 200); HDL Cholesterol 77 mg/dL (40-59); LDL Cholesterol 78 mg/dL (< 100); Triglycerides 104 mg/dL (< 150)
[2022-06-02] MEDS: IPRATROPIUM BROM 0.5 MG/2.5ML INH SOL NEB SCH ×2 (13:44→18:38)
[2022-06-02] MEDS: ALBUTEROL SULF 2.5 MG/0.5ML(0.5%) NEB SOLN NEB SCH ×2 (13:44→18:38)
[2022-06-02] MEDS: MORPHINE SULFATE INJ 2 MG/ml SYRG IV PRN ×3 (14:26→21:59)
[2022-06-02 15:19] VITALS: BP 134/75
[2022-06-02] MEDS: HYDROcodone-ACET 5/325MG TAB PO PRN ×2 (15:53→20:29)
[2022-06-02 22:00] VITALS: BP 132/80
[2022-06-02] MEDS ORDERED: SACUBITRIL-VALSARTAN 24mg/26mg TAB PO SCH (22:00)
[2022-06-02] MEDS: [UNRECOGNIZED DRUG - OTHER] PO SCH (22:00)
[2022-06-02 22:10] VITALS: BP 130/77
[2022-06-02] MEDS: methylPREDNISolone SOD SUCC 125 MG/2 ML VL IV SCH (22:19)
[2022-06-02] MEDS: ATORVASTATIN 20 MG TAB PO SCH (22:20)
[2022-06-02] MEDS: CARVEDILOL 12.5 MG TAB PO SCH (22:20)
[2022-06-02] MEDS: GABAPENTIN 300 MG CAP PO SCH (22:20)
[2022-06-02] MEDS: APIXABAN 5 MG TAB PO SCH (22:20)
[2022-06-02] MEDS: AMIODARONE HCL 200 MG TAB PO SCH (22:20)
[2022-06-03] MEDS: MORPHINE SULFATE INJ 2 MG/ml SYRG IV PRN ×5 (00:36→20:01)
[2022-06-03 01:00] VITALS: BP 105/62
[2022-06-03 01:10] LABS: Free T4 (Free Thyroxine) 2.33 ng/dL (0.89-1.76); T3 Total 0.67 ng/mL (0.60-1.81)
[2022-06-03 05:00] VITALS: BP 106/59
[2022-06-03] MEDS: [UNRECOGNIZED DRUG - OTHER] PO SCH ×3 (06:00→22:00)
[2022-06-03 06:28] LABS: Basophils # (auto) 0 10 ^3/uL (0-0.2); Eosinophils # (auto) 0 10 ^3/uL (0-0.8); Hematocrit 39.3 % (36.0-46.0); Hemoglobin 12.8 g/dL (12.2-16.2); Lymphocytes # (auto) 0.4 10 ^3/uL (0.4-5.4); Lymphocytes % (auto) 6.2 % (10.0-50.0); Mean Corpuscular Hemoglobin 28.7 pg (28.0-32.0); Mean Corpuscular Hgb Conc. 32.7 g/dL (32.0-36.0); Mean Corpuscular Volume 87.9 fL (80.0-100.0); Monocytes # (auto) 0.1 10 ^3/uL (0-1.3); Monocytes % (auto) 1.4 % (0.0-12.0); Neutrophils # (auto) 6.1 10 ^3/uL (1.6-8.6); Neutrophils % (auto) 92.4 % (37.0-80.0); Red Blood Cells 4.47 10^6/uL (4.0-5.20); Red Cell Distribution Width 15.1 % (11.8-14.3); White Blood Cell 6.6 10^3/uL (4.4-10.8)
[2022-06-03] MEDS: IPRATROPIUM BROM 0.5 MG/2.5ML INH SOL NEB SCH ×3 (07:00→19:32)
[2022-06-03] MEDS: ALBUTEROL SULF 2.5 MG/0.5ML(0.5%) NEB SOLN NEB SCH ×3 (07:00→19:32)
[2022-06-03 07:06] LABS: Albumin 2.8 g/dL (3.4-5.0); BUN/Creatinine Ratio 18.6; Bilirubin, Total 0.4 mg/dL (0.2-1.0); Calcium 8.6 mg/dL (8.5-10.1); Potassium 4.2 mmol/L (3.5-5.1); Total Protein 6.1 g/dL (6.4-8.2)
[2022-06-03 09:00] VITALS: BP 127/59
[2022-06-03] MEDS: cefTRIAXone 1GM/50ML D5W 50 ML IV SCH (09:14)
[2022-06-03] MEDS: AMIODARONE HCL 200 MG TAB PO SCH ×2 (09:15→23:03)
[2022-06-03] MEDS: APIXABAN 5 MG TAB PO SCH ×2 (09:16→23:03)
[2022-06-03] MEDS: ASPirin 81 mg TAB PO SCH (09:16)
[2022-06-03] MEDS: CARVEDILOL 12.5 MG TAB PO SCH ×2 (09:17→10:17)
[2022-06-03] MEDS: FUROSEMIDE 20 MG/2 ML VIAL IV SCH (09:18)
[2022-06-03] MEDS ORDERED: PATIENTS OWN MEDICATION (Levothyroxine Sodium 1 TAB) PO SCH (10:00)
[2022-06-03] MEDS ORDERED: LEVOTHYROXINE SODIUM 112 MCG TAB PO SCH (10:00)
[2022-06-03] MEDS ORDERED: PATIENTS OWN MEDICATION (Atorvastatin Calcium 1 TAB) PO SCH (10:00)
[2022-06-03] MEDS ORDERED: LEVOTHYROXINE SODIUM 25 MCG TAB PO SCH (10:00)
[2022-06-03] MEDS: GABAPENTIN 300 MG CAP PO SCH ×2 (10:20→23:04)
[2022-06-03] MEDS: methylPREDNISolone SOD SUCC 125 MG/2 ML VL IV SCH ×2 (10:20→23:03)
[2022-06-03 13:00] VITALS: BP 125/62
[2022-06-03 17:00] VITALS: BP 139/58
[2022-06-03 22:00] VITALS: BP 136/60
[2022-06-03] MEDS: ATORVASTATIN 20 MG TAB PO SCH (23:04)
[2022-06-04] MEDS: MORPHINE SULFATE INJ 2 MG/ml SYRG IV PRN ×6 (00:06→22:33)
[2022-06-04] MEDS: IPRATROPIUM BROM 0.5 MG/2.5ML INH SOL NEB PRN (02:47)
[2022-06-04] MEDS: ALBUTEROL SULF 2.5 MG/0.5ML(0.5%) NEB SOLN NEB PRN (02:47)
[2022-06-04 05:00] VITALS: BP 113/61
[2022-06-04] MEDS: [UNRECOGNIZED DRUG - OTHER] PO SCH ×3 (06:00→22:00)
[2022-06-04 06:12] LABS: Basophils # (auto) 0 10 ^3/uL (0-0.2); Eosinophils # (auto) 0 10 ^3/uL (0-0.8); Hematocrit 39.5 % (36.0-46.0); Hemoglobin 13.1 g/dL (12.2-16.2); Lymphocytes # (auto) 0.3 10 ^3/uL (0.4-5.4); Lymphocytes % (auto) 3.3 % (10.0-50.0); Mean Corpuscular Hemoglobin 29.2 pg (28.0-32.0); Mean Corpuscular Hgb Conc. 33.2 g/dL (32.0-36.0); Monocytes # (auto) 0.1 10 ^3/uL (0-1.3); Monocytes % (auto) 1.2 % (0.0-12.0); Neutrophils # (auto) 9.8 10 ^3/uL (1.6-8.6); Neutrophils % (auto) 95.5 % (37.0-80.0); Nucleated Red Blood Cells % 0.1 %; Red Blood Cells 4.48 10^6/uL (4.0-5.20); Red Cell Distribution Width 14.9 % (11.8-14.3); White Blood Cell 10.2 10^3/uL (4.4-10.8)
[2022-06-04 06:31] LABS: Potassium 4.1 mmol/L (3.5-5.1)
[2022-06-04 06:39] LABS: Albumin 2.9 g/dL (3.4-5.0); BUN/Creatinine Ratio 20.1; Bilirubin, Total 0.4 mg/dL (0.2-1.0); Calcium 8.7 mg/dL (8.5-10.1); Total Protein 5.9 g/dL (6.4-8.2)
[2022-06-04] MEDS: ALBUTEROL SULF 2.5 MG/0.5ML(0.5%) NEB SOLN NEB SCH ×3 (07:08→18:36)
[2022-06-04] MEDS: IPRATROPIUM BROM 0.5 MG/2.5ML INH SOL NEB SCH ×3 (07:08→18:36)
[2022-06-04] MEDS: cefTRIAXone 1GM/50ML D5W 50 ML IV SCH (08:46)
[2022-06-04] MEDS: FUROSEMIDE 20 MG/2 ML VIAL IV SCH (08:46)
[2022-06-04] MEDS: GABAPENTIN 300 MG CAP PO SCH ×2 (08:47→22:36)
[2022-06-04] MEDS: APIXABAN 5 MG TAB PO SCH ×2 (08:47→22:35)
[2022-06-04] MEDS: methylPREDNISolone SOD SUCC 125 MG/2 ML VL IV SCH ×2 (08:47→22:34)
[2022-06-04] MEDS: ASPirin 81 mg TAB PO SCH (08:47)
[2022-06-04] MEDS: AMIODARONE HCL 200 MG TAB PO SCH ×2 (08:48→22:34)
[2022-06-04] MEDS: CARVEDILOL 12.5 MG TAB PO SCH ×2 (08:49→22:35)
[2022-06-04 09:00] VITALS: BP 151/80
[2022-06-04] MEDS: HYDROcodone-ACET 5/325MG TAB PO PRN ×3 (13:46→22:33)
[2022-06-04 13:54] VITALS: BP 120/51
[2022-06-04 17:00] VITALS: BP 145/69
[2022-06-04 22:00] VITALS: BP 158/105
[2022-06-04] MEDS: ATORVASTATIN 20 MG TAB PO SCH (22:35)
[2022-06-05] VITALS (7 sets, daily range): BP systolic 125–160; BP diastolic 62–90
[2022-06-05] MEDS: MORPHINE SULFATE INJ 2 MG/ml SYRG IV PRN ×5 (05:18→22:29)
[2022-06-05] MEDS: HYDROcodone-ACET 5/325MG TAB PO PRN ×3 (05:19→16:41)
[2022-06-05] MEDS: [UNRECOGNIZED DRUG - OTHER] PO SCH ×3 (06:00→22:00)
[2022-06-05] MEDS: ALBUTEROL SULF 2.5 MG/0.5ML(0.5%) NEB SOLN NEB SCH ×3 (06:34→18:47)
[2022-06-05] MEDS: IPRATROPIUM BROM 0.5 MG/2.5ML INH SOL NEB SCH ×3 (06:34→18:47)
[2022-06-05 06:47] LABS: Hematocrit 39.9 % (36.0-46.0); Hemoglobin 13.3 g/dL (12.2-16.2); Mean Corpuscular Hemoglobin 29.2 pg (28.0-32.0); Mean Corpuscular Hgb Conc. 33.3 g/dL (32.0-36.0); Mean Corpuscular Volume 87.6 fL (80.0-100.0); Red Blood Cells 4.56 10^6/uL (4.0-5.20); Red Cell Distribution Width 14.9 % (11.8-14.3); White Blood Cell 10.3 10^3/uL (4.4-10.8)
[2022-06-05 06:57] LABS: Band Neutrophils % (manual) 0; Basophils % (manual) 0 (0.0-2.0); Blast Cells 0; Eosinophils % (manual) 0 (0-7); Metamyelocytes % 0; Myelocytes % 0; Promyelocytes % 0; Reactive Lymphocytes 0
[2022-06-05 07:01] LABS: Albumin 2.9 g/dL (3.4-5.0); Calcium 8.5 mg/dL (8.5-10.1)
[2022-06-05 07:06] LABS: Bilirubin, Total 0.4 mg/dL (0.2-1.0); Total Protein 5.9 g/dL (6.4-8.2)
[2022-06-05] MEDS: cefTRIAXone 1GM/50ML D5W 50 ML IV SCH (09:01)
[2022-06-05 09:35] LABS: Lymphocytes % (manual) 5 (10.0-50.0); Monocytes % (manual) 2 (0-12)
[2022-06-05] MEDS: FUROSEMIDE 20 MG/2 ML VIAL IV SCH (10:00)
[2022-06-05] MEDS: CARVEDILOL 12.5 MG TAB PO SCH ×2 (10:01→22:24)
[2022-06-05] MEDS: ASPirin 81 mg TAB PO SCH (10:01)
[2022-06-05] MEDS: methylPREDNISolone SOD SUCC 125 MG/2 ML VL IV SCH ×2 (10:01→22:22)
[2022-06-05] MEDS: AMIODARONE HCL 200 MG TAB PO SCH ×2 (10:01→22:23)
[2022-06-05] MEDS: APIXABAN 5 MG TAB PO SCH ×2 (10:02→22:24)
[2022-06-05] MEDS: GABAPENTIN 300 MG CAP PO SCH ×2 (10:02→22:22)
[2022-06-05] MEDS: ATORVASTATIN 20 MG TAB PO SCH (22:23)
[2022-06-05] MEDS: ALBUTEROL SULF 2.5 MG/0.5ML(0.5%) NEB SOLN NEB PRN (23:11)
[2022-06-05] MEDS: IPRATROPIUM BROM 0.5 MG/2.5ML INH SOL NEB PRN (23:11)
[2022-06-06] MEDS: MORPHINE SULFATE INJ 2 MG/ml SYRG IV PRN ×5 (04:49→22:19)
[2022-06-06 05:00] VITALS: BP 149/95
[2022-06-06 05:08] LABS: Basophils # (auto) 0 10 ^3/uL (0-0.2); Basophils % (auto) 0.1 % (0.0-2.0); Eosinophils # (auto) 0 10 ^3/uL (0-0.8); Hematocrit 45.4 % (36.0-46.0); Hemoglobin 14.2 g/dL (12.2-16.2); Lymphocytes # (auto) 0.3 10 ^3/uL (0.4-5.4); Lymphocytes % (auto) 2.7 % (10.0-50.0); Mean Corpuscular Hemoglobin 27.7 pg (28.0-32.0); Mean Corpuscular Hgb Conc. 31.3 g/dL (32.0-36.0); Mean Corpuscular Volume 88.3 fL (80.0-100.0); Monocytes # (auto) 0.2 10 ^3/uL (0-1.3); Monocytes % (auto) 1.3 % (0.0-12.0); Neutrophils # (auto) 12.2 10 ^3/uL (1.6-8.6); Neutrophils % (auto) 95.9 % (37.0-80.0); Nucleated Red Blood Cells % 0.1 %; Red Blood Cells 5.14 10^6/uL (4.0-5.20); Red Cell Distribution Width 15.1 % (11.8-14.3); White Blood Cell 12.7 10^3/uL (4.4-10.8)
[2022-06-06 05:36] LABS: Potassium 4.9 mmol/L (3.5-5.1)
[2022-06-06 05:45] LABS: Albumin 3.1 g/dL (3.4-5.0); Bilirubin, Total 0.5 mg/dL (0.2-1.0); Calcium 8.5 mg/dL (8.5-10.1); Total Protein 6.3 g/dL (6.4-8.2)
[2022-06-06] MEDS: [UNRECOGNIZED DRUG - OTHER] PO SCH ×3 (06:00→22:00)
[2022-06-06] MEDS: ALBUTEROL SULF 2.5 MG/0.5ML(0.5%) NEB SOLN NEB SCH ×3 (06:29→19:25)
[2022-06-06] MEDS: IPRATROPIUM BROM 0.5 MG/2.5ML INH SOL NEB SCH ×3 (06:29→19:25)
[2022-06-06] MEDS: cefTRIAXone 1GM/50ML D5W 50 ML IV SCH (08:40)
[2022-06-06 09:00] VITALS: BP 129/65
[2022-06-06] MEDS ORDERED: POLYETHYLENE GLYCOL 17 GM PWDR PO PRN (09:15)
[2022-06-06] MEDS: FUROSEMIDE 20 MG/2 ML VIAL IV SCH (10:08)
[2022-06-06] MEDS: GABAPENTIN 300 MG CAP PO SCH ×2 (10:08→22:08)
[2022-06-06] MEDS: CARVEDILOL 12.5 MG TAB PO SCH ×2 (10:09→22:09)
[2022-06-06] MEDS: AMIODARONE HCL 200 MG TAB PO SCH ×2 (10:09→22:10)
[2022-06-06] MEDS: ASPirin 81 mg TAB PO SCH (10:10)
[2022-06-06] MEDS: methylPREDNISolone SOD SUCC 125 MG/2 ML VL IV SCH ×2 (10:10→22:08)
[2022-06-06] MEDS: APIXABAN 5 MG TAB PO SCH ×2 (10:11→22:10)
[2022-06-06 10:25] LABS: Urine Bacteria FEW /hpf (None Seen); Urine Blood Negative /uL (Negative); Urine Specific Gravity 1.019 (1.001-1.035); Urine WBC 5 /hpf (0 - 5)
[2022-06-06 10:32] LABS: Creatinine, Urine 103 mg/dL (30.0-125.0); Sodium Urine 10 mmol/L (40-220)
[2022-06-06 13:00] VITALS: BP 135/68
[2022-06-06] MEDS: HYDROcodone-ACET 5/325MG TAB PO PRN (15:13)
[2022-06-06 16:49] VITALS: BP 122/52
[2022-06-06 20:00] VITALS: BP 115/67
[2022-06-06 22:00] VITALS: BP 115/67
[2022-06-06] MEDS: ATORVASTATIN 20 MG TAB PO SCH (22:10)
[2022-06-07] MEDS: MORPHINE SULFATE INJ 2 MG/ml SYRG IV PRN (02:18)
[2022-06-07 05:00] VITALS: BP 120/54
[2022-06-07] MEDS: IPRATROPIUM BROM 0.5 MG/2.5ML INH SOL NEB SCH ×3 (06:00→19:40)
[2022-06-07] MEDS: [UNRECOGNIZED DRUG - OTHER] PO SCH ×3 (06:00→21:24)
[2022-06-07] MEDS: ALBUTEROL SULF 2.5 MG/0.5ML(0.5%) NEB SOLN NEB SCH ×3 (06:51→19:40)
[2022-06-07 07:45] LABS: Albumin 2.8 g/dL (3.4-5.0); Calcium 8.1 mg/dL (8.5-10.1); Potassium 4.8 mmol/L (3.5-5.1)
[2022-06-07 07:47] LABS: BUN/Creatinine Ratio 19.9
[2022-06-07 07:50] LABS: Bilirubin, Total 0.4 mg/dL (0.2-1.0); Total Protein 5.7 g/dL (6.4-8.2)
[2022-06-07 07:53] LABS: Basophils # (auto) 0 10 ^3/uL (0-0.2); Eosinophils # (auto) 0 10 ^3/uL (0-0.8); Hematocrit 41.7 % (36.0-46.0); Hemoglobin 13.3 g/dL (12.2-16.2); Lymphocytes # (auto) 0.2 10 ^3/uL (0.4-5.4); Lymphocytes % (auto) 1.7 % (10.0-50.0); Mean Corpuscular Hemoglobin 28.1 pg (28.0-32.0); Mean Corpuscular Hgb Conc. 31.9 g/dL (32.0-36.0); Mean Corpuscular Volume 88.1 fL (80.0-100.0); Monocytes # (auto) 0.2 10 ^3/uL (0-1.3); Monocytes % (auto) 1.9 % (0.0-12.0); Neutrophils # (auto) 12.7 10 ^3/uL (1.6-8.6); Neutrophils % (auto) 96.4 % (37.0-80.0); Nucleated Red Blood Cells % 0.1 %; Red Blood Cells 4.73 10^6/uL (4.0-5.20); Red Cell Distribution Width 14.7 % (11.8-14.3); White Blood Cell 13.2 10^3/uL (4.4-10.8)
[2022-06-07 09:34] VITALS: BP 128/73
[2022-06-07] MEDS: ASPirin 81 mg TAB PO SCH (10:02)
[2022-06-07] MEDS: APIXABAN 5 MG TAB PO SCH ×2 (10:02→21:18)
[2022-06-07] MEDS: GABAPENTIN 300 MG CAP PO SCH ×2 (10:02→21:20)
[2022-06-07] MEDS: methylPREDNISolone SOD SUCC 125 MG/2 ML VL IV SCH ×2 (10:02→21:17)
[2022-06-07] MEDS: HYDROcodone-ACET 5/325MG TAB PO PRN ×3 (10:02→22:18)
[2022-06-07] MEDS: CARVEDILOL 12.5 MG TAB PO SCH ×2 (10:03→21:22)
[2022-06-07] MEDS: AMIODARONE HCL 200 MG TAB PO SCH ×2 (10:04→21:21)
[2022-06-07 13:00] VITALS: BP 121/78
[2022-06-07] MEDS ORDERED: SODIUM CHLORIDE 0.9% 1,000 ML IV ONE (13:45)
[2022-06-07 17:00] VITALS: BP 125/65
[2022-06-07 19:02] LABS: Urine Amorphous Crystal FEW /hpf (None Seen); Urine Bacteria FEW /hpf (None Seen); Urine Blood Negative /uL (Negative); Urine Specific Gravity 1.018 (1.001-1.035); Urine WBC 3 /hpf (0 - 5)
[2022-06-07 20:00] VITALS: BP 139/96
[2022-06-07] MEDS: ATORVASTATIN 20 MG TAB PO SCH (21:18)
[2022-06-07 22:59] VITALS: BP 139/96
[2022-06-08] VITALS (7 sets, daily range): BP systolic 73–135; BP diastolic 50–70
[2022-06-08] MEDS: ALBUTEROL SULF 2.5 MG/0.5ML(0.5%) NEB SOLN NEB SCH ×2 (05:33→17:54)
[2022-06-08] MEDS: IPRATROPIUM BROM 0.5 MG/2.5ML INH SOL NEB SCH ×2 (05:33→17:54)
[2022-06-08] MEDS: [UNRECOGNIZED DRUG - OTHER] PO SCH ×3 (06:00→22:00)
[2022-06-08 06:44] LABS: Hematocrit 39.5 % (36.0-46.0); Hemoglobin 12.7 g/dL (12.2-16.2); Mean Corpuscular Hemoglobin 28.3 pg (28.0-32.0); Mean Corpuscular Hgb Conc. 32.1 g/dL (32.0-36.0); Mean Corpuscular Volume 88.2 fL (80.0-100.0); Red Blood Cells 4.48 10^6/uL (4.0-5.20); Red Cell Distribution Width 15.1 % (11.8-14.3)
[2022-06-08 06:54] LABS: Basophils % (manual) 0 (0.0-2.0); Blast Cells 0; Eosinophils % (manual) 0 (0-7); Myelocytes % 0; Promyelocytes % 0; Reactive Lymphocytes 0
[2022-06-08] MEDS: APIXABAN 5 MG TAB PO SCH ×2 (10:22→21:45)
[2022-06-08] MEDS: GABAPENTIN 300 MG CAP PO SCH ×2 (10:22→21:45)
[2022-06-08] MEDS: AMIODARONE HCL 200 MG TAB PO SCH ×2 (10:22→21:44)
[2022-06-08] MEDS: ASPirin 81 mg TAB PO SCH (10:22)
[2022-06-08] MEDS: methylPREDNISolone SOD SUCC 125 MG/2 ML VL IV SCH (10:22)
[2022-06-08] MEDS: HYDROcodone-ACET 5/325MG TAB PO PRN ×2 (10:27→15:11)
[2022-06-08] MEDS: CARVEDILOL 12.5 MG TAB PO SCH ×2 (10:29→22:00)
[2022-06-08] MEDS ORDERED: cefTRIAXone 1GM/50ML D5W 50 ML IV ONE (11:00)
[2022-06-08] MEDS ORDERED: AZITHROMYCIN 500MG/ 250ML 250 ML IV ONE (11:00)
[2022-06-08 11:14] LABS: Band Neutrophils % (manual) 2; Lymphocytes % (manual) 3 (10.0-50.0); Metamyelocytes % 1; Monocytes % (manual) 1 (0-12)
[2022-06-08 11:26] LABS: Chloride 107 mmol/L (98-107); Sodium 141 mmol/L (136-145)
[2022-06-08 11:44] LABS: Alanine Aminotransferase 28 U/L (13-56); Albumin 2.8 g/dL (3.4-5.0); Anion Gap 15 (5-15); Aspartate Aminotransferase 22 U/L (15-37); BUN/Creatinine Ratio 22.2; Calcium 7.6 mg/dL (8.5-10.1); Carbon Dioxide 19 mmol/L (21-32); GFR African American 10 mL/min; GFR Non-African American 8 mL/min; Glucose 118 mg/dL (74-106)
[2022-06-08 11:48] LABS: Alkaline Phosphatase 67 U/L (45-117); Bilirubin, Total 0.4 mg/dL (0.2-1.0); Total Protein 5.5 g/dL (6.4-8.2)
[2022-06-08 12:32] LABS: Blood Urea Nitrogen 123 mg/dL (7-18); Potassium 5.3 mmol/L (3.5-5.1)
[2022-06-08 14:26] LABS: Protein, Urine 63.7 mg/dL (0.0-11.9)
[2022-06-08] MEDS: ATORVASTATIN 20 MG TAB PO SCH (21:44)
[2022-06-09] VITALS (7 sets, daily range): BP systolic 90–143; BP diastolic 29–90
[2022-06-09] MEDS: [UNRECOGNIZED DRUG - OTHER] PO SCH ×3 (05:16→21:43)
[2022-06-09 05:31] LABS: Basophils # (auto) 0 10 ^3/uL (0-0.2); Basophils % (auto) 0.2 % (0.0-2.0); Eosinophils # (auto) 0 10 ^3/uL (0-0.8); Hematocrit 36.7 % (36.0-46.0); Hemoglobin 11.9 g/dL (12.2-16.2); Lymphocytes # (auto) 0.2 10 ^3/uL (0.4-5.4); Lymphocytes % (auto) 1.8 % (10.0-50.0); Mean Corpuscular Hemoglobin 28.6 pg (28.0-32.0); Mean Corpuscular Hgb Conc. 32.5 g/dL (32.0-36.0); Mean Corpuscular Volume 87.8 fL (80.0-100.0); Monocytes # (auto) 0.4 10 ^3/uL (0-1.3); Monocytes % (auto) 3.2 % (0.0-12.0); Neutrophils # (auto) 11.9 10 ^3/uL (1.6-8.6); Neutrophils % (auto) 94.8 % (37.0-80.0); Nucleated Red Blood Cells % 0.1 %; Red Blood Cells 4.17 10^6/uL (4.0-5.20); Red Cell Distribution Width 15.4 % (11.8-14.3); White Blood Cell 12.5 10^3/uL (4.4-10.8)
[2022-06-09 05:59] LABS: Potassium 5.5 mmol/L (3.5-5.1)
[2022-06-09 06:02] LABS: BUN/Creatinine Ratio 24.5
[2022-06-09] MEDS: IPRATROPIUM BROM 0.5 MG/2.5ML INH SOL NEB SCH ×3 (06:45→18:42)
[2022-06-09] MEDS: ALBUTEROL SULF 2.5 MG/0.5ML(0.5%) NEB SOLN NEB SCH ×3 (06:45→18:42)
[2022-06-09] MEDS: GABAPENTIN 300 MG CAP PO SCH (08:35)
[2022-06-09] MEDS: APIXABAN 5 MG TAB PO SCH ×2 (08:35→21:45)
[2022-06-09] MEDS: AMIODARONE HCL 200 MG TAB PO SCH ×2 (08:47→21:45)
[2022-06-09] MEDS: CARVEDILOL 12.5 MG TAB PO SCH (08:47)
[2022-06-09] MEDS ORDERED: cefTRIAXone 1GM/50ML D5W 50 ML IV SCH (09:00)
[2022-06-09] MEDS ORDERED: AZITHROMYCIN 500MG/ 250ML 250 ML IV SCH (10:00)
[2022-06-09] MEDS ORDERED: methylPREDNISolone SOD SUCC 40 MG/ML VL IV ONE (11:15)
[2022-06-09] MEDS: SOD CHL 0.45% 1,000 ML IV SCH (12:07)
[2022-06-09] MEDS ORDERED: SODIUM ZIRCONIUM CYCL 10 GM PAK PO SCH (12:15)
[2022-06-09] MEDS: PIPERACILLIN-TAZOB 2.25GM 50 ML IV SCH ×3 (12:20→23:45)
[2022-06-09] MEDS: ALBUMIN 25% 100 ML IV SCH ×2 (13:48→16:12)
[2022-06-09] MEDS: DOPamine 1600MCG/ML D5W 250 ML IV SCH (16:18)
[2022-06-09] MEDS: HYDROcodone-ACET 5/325MG TAB PO PRN (20:44)
[2022-06-09] MEDS: methylPREDNISolone SOD SUCC 40 MG/ML VL IV SCH (21:45)
[2022-06-09] MEDS: ATORVASTATIN 20 MG TAB PO SCH (21:45)
[2022-06-09] MEDS: SODIUM ZIRCONIUM CYCL 10 GM PAK PO SCH (21:45)
[2022-06-10] MEDS: HYDROcodone-ACET 5/325MG TAB PO PRN ×2 (00:30→12:48)
[2022-06-10 00:31] VITALS: BP 123/48
[2022-06-10] MEDS: IPRATROPIUM BROM 0.5 MG/2.5ML INH SOL NEB SCH ×3 (01:39→18:44)
[2022-06-10] MEDS: ALBUTEROL SULF 2.5 MG/0.5ML(0.5%) NEB SOLN NEB SCH ×3 (01:39→18:44)
[2022-06-10] MEDS: MORPHINE SULFATE INJ 2 MG/ml SYRG IV PRN ×2 (02:39→20:44)
[2022-06-10] MEDS: SOD CHL 0.45% 1,000 ML IV SCH (03:55)
[2022-06-10 04:13] VITALS: BP 125/47
[2022-06-10] MEDS: ALBUMIN 25% 100 ML IV SCH (04:13)
[2022-06-10] MEDS: [UNRECOGNIZED DRUG - OTHER] PO SCH ×3 (07:04→22:00)
[2022-06-10] MEDS: SODIUM ZIRCONIUM CYCL 10 GM PAK PO SCH (07:04)
[2022-06-10] MEDS: PIPERACILLIN-TAZOB 2.25GM 50 ML IV SCH ×3 (07:04→19:21)
[2022-06-10 07:27] LABS: Basophils # (auto) 0 10 ^3/uL (0-0.2); Basophils % (auto) 0.2 % (0.0-2.0); Eosinophils # (auto) 0 10 ^3/uL (0-0.8); Hematocrit 29.6 % (36.0-46.0); Hemoglobin 9.6 g/dL (12.2-16.2); Lymphocytes # (auto) 0.1 10 ^3/uL (0.4-5.4); Lymphocytes % (auto) 1.4 % (10.0-50.0); Mean Corpuscular Hemoglobin 28.6 pg (28.0-32.0); Mean Corpuscular Hgb Conc. 32.4 g/dL (32.0-36.0); Mean Corpuscular Volume 88.2 fL (80.0-100.0); Monocytes # (auto) 0.2 10 ^3/uL (0-1.3); Monocytes % (auto) 1.8 % (0.0-12.0); Neutrophils # (auto) 10.2 10 ^3/uL (1.6-8.6); Neutrophils % (auto) 96.6 % (37.0-80.0); Nucleated Red Blood Cells % 0.2 %; Red Blood Cells 3.35 10^6/uL (4.0-5.20); Red Cell Distribution Width 15.2 % (11.8-14.3); White Blood Cell 10.6 10^3/uL (4.4-10.8)
[2022-06-10 08:15] LABS: Albumin 3.3 g/dL (3.4-5.0); BUN/Creatinine Ratio 26.8; Bilirubin, Total 0.7 mg/dL (0.2-1.0); Calcium 7.8 mg/dL (8.5-10.1); Total Protein 5.5 g/dL (6.4-8.2)
[2022-06-10 09:00] VITALS: BP 102/47
[2022-06-10] MEDS: methylPREDNISolone SOD SUCC 40 MG/ML VL IV SCH ×2 (10:46→22:07)
[2022-06-10] MEDS: AMIODARONE HCL 200 MG TAB PO SCH ×2 (10:46→22:08)
[2022-06-10] MEDS: APIXABAN 5 MG TAB PO SCH ×2 (10:46→22:08)
[2022-06-10] MEDS ORDERED: SODIUM BICARBONATE 50ML VIAL 50 ML in SOD CHL 0.45% 1,000 ML IV SCH (12:30)
[2022-06-10 13:00] VITALS: BP 143/119
[2022-06-10] MEDS ORDERED: NICOTINE 21MG/24 HR TOPICAL PATCH TD ONE (13:30)
[2022-06-10] MEDS: SODIUM BICARBONATE 50ML VIAL 50 ML in SOD CHL 0.45% 1,000 ML IV SCH ×2 (13:37→22:56)
[2022-06-10] MEDS: DOPamine 1600MCG/ML D5W 250 ML IV SCH (15:00)
[2022-06-10] MEDS: Nepro With Carbsteady ButterPecan 8oz Carton PO SCH (16:05)
[2022-06-10 17:00] VITALS: BP 142/84
[2022-06-10 22:00] VITALS: BP 124/69
[2022-06-10] MEDS: ATORVASTATIN 20 MG TAB PO SCH (22:08)
[2022-06-11] VITALS (7 sets, daily range): BP systolic 120–141; BP diastolic 41–77
[2022-06-11] MEDS: PIPERACILLIN-TAZOB 2.25GM 50 ML IV SCH ×4 (00:01→17:59)
[2022-06-11] MEDS: ALBUTEROL SULF 2.5 MG/0.5ML(0.5%) NEB SOLN NEB PRN (00:42)
[2022-06-11] MEDS: IPRATROPIUM BROM 0.5 MG/2.5ML INH SOL NEB SCH ×3 (00:42→12:07)
[2022-06-11] MEDS: MORPHINE SULFATE INJ 2 MG/ml SYRG IV PRN ×5 (00:51→21:51)
[2022-06-11] MEDS: DOPamine 1600MCG/ML D5W 250 ML IV SCH (02:07)
[2022-06-11 05:34] LABS: Basophils # (auto) 0 10 ^3/uL (0-0.2); Basophils % (auto) 0.1 % (0.0-2.0); Eosinophils # (auto) 0 10 ^3/uL (0-0.8); Hematocrit 30.3 % (36.0-46.0); Lymphocytes # (auto) 0.2 10 ^3/uL (0.4-5.4); Lymphocytes % (auto) 1.8 % (10.0-50.0); Mean Corpuscular Hemoglobin 28.5 pg (28.0-32.0); Mean Corpuscular Volume 86.4 fL (80.0-100.0); Monocytes # (auto) 0.2 10 ^3/uL (0-1.3); Monocytes % (auto) 2.2 % (0.0-12.0); Neutrophils # (auto) 10.4 10 ^3/uL (1.6-8.6); Neutrophils % (auto) 95.9 % (37.0-80.0); Nucleated Red Blood Cells % 0.1 %; Red Cell Distribution Width 14.7 % (11.8-14.3); White Blood Cell 10.9 10^3/uL (4.4-10.8)
[2022-06-11 05:53] LABS: BUN/Creatinine Ratio 24.9; Potassium 4.4 mmol/L (3.5-5.1)
[2022-06-11] MEDS: [UNRECOGNIZED DRUG - OTHER] PO SCH ×3 (06:00→21:52)
[2022-06-11] MEDS: ALBUTEROL SULF 2.5 MG/0.5ML(0.5%) NEB SOLN NEB SCH ×3 (06:14→18:47)
[2022-06-11] MEDS: methylPREDNISolone SOD SUCC 40 MG/ML VL IV SCH ×2 (09:34→22:59)
[2022-06-11] MEDS: APIXABAN 5 MG TAB PO SCH ×2 (09:34→21:51)
[2022-06-11] MEDS: AMIODARONE HCL 200 MG TAB PO SCH ×2 (09:35→22:59)
[2022-06-11] MEDS: SODIUM BICARBONATE 50ML VIAL 50 ML in SOD CHL 0.45% 1,000 ML IV SCH ×2 (09:36→13:07)
[2022-06-11] MEDS: NICOTINE 21MG/24 HR TOPICAL PATCH TD SCH (09:37)
[2022-06-11] MEDS: Nepro With Carbsteady ButterPecan 8oz Carton PO SCH ×2 (09:38→18:23)
[2022-06-11] MEDS ORDERED: SALINE 0.65 % NASAL SPRAY 45ML BOTTLE EACHNOSTRI ONE (12:15)
[2022-06-11] MEDS: SALINE 0.65 % NASAL SPRAY 45ML BOTTLE EACHNOSTRI SCH ×2 (17:59→22:00)
[2022-06-11] MEDS: IPRATROPIUM BROM 0.5 MG/2.5ML INH SOL NEB PRN (18:48)
[2022-06-11 22:32] LABS: Basophils # (auto) 0 10 ^3/uL (0-0.2); Eosinophils # (auto) 0 10 ^3/uL (0-0.8); Hematocrit 30.8 % (36.0-46.0); Lymphocytes # (auto) 0.2 10 ^3/uL (0.4-5.4); Lymphocytes % (auto) 1.5 % (10.0-50.0); Mean Corpuscular Hemoglobin 27.8 pg (28.0-32.0); Mean Corpuscular Hgb Conc. 32.4 g/dL (32.0-36.0); Mean Corpuscular Volume 85.8 fL (80.0-100.0); Monocytes # (auto) 0.6 10 ^3/uL (0-1.3); Monocytes % (auto) 4.9 % (0.0-12.0); Neutrophils # (auto) 11.9 10 ^3/uL (1.6-8.6); Neutrophils % (auto) 93.6 % (37.0-80.0); Nucleated Red Blood Cells % 0.1 %; Red Blood Cells 3.59 10^6/uL (4.0-5.20); Red Cell Distribution Width 14.8 % (11.8-14.3); White Blood Cell 12.7 10^3/uL (4.4-10.8)
[2022-06-11] MEDS: ATORVASTATIN 20 MG TAB PO SCH (22:58)
[2022-06-12] MEDS: PIPERACILLIN-TAZOB 2.25GM 50 ML IV SCH ×5 (00:18→23:11)
[2022-06-12] MEDS: MORPHINE SULFATE INJ 2 MG/ml SYRG IV PRN ×4 (02:00→23:54)
[2022-06-12] MEDS: SODIUM BICARBONATE 50ML VIAL 50 ML in SOD CHL 0.45% 1,000 ML IV SCH (03:09)
[2022-06-12] MEDS: HYDROcodone-ACET 5/325MG TAB PO PRN (03:15)
[2022-06-12] MEDS: ALBUTEROL SULF 2.5 MG/0.5ML(0.5%) NEB SOLN NEB PRN ×2 (04:54→22:03)
[2022-06-12] MEDS: IPRATROPIUM BROM 0.5 MG/2.5ML INH SOL NEB PRN ×2 (04:55→22:03)
[2022-06-12 05:00] VITALS: BP 158/58
[2022-06-12] MEDS: [UNRECOGNIZED DRUG - OTHER] PO SCH ×3 (06:00→22:00)
[2022-06-12] MEDS: SALINE 0.65 % NASAL SPRAY 45ML BOTTLE EACHNOSTRI SCH ×4 (06:03→21:56)
[2022-06-12] MEDS: IPRATROPIUM BROM 0.5 MG/2.5ML INH SOL NEB SCH ×3 (06:18→18:45)
[2022-06-12] MEDS: ALBUTEROL SULF 2.5 MG/0.5ML(0.5%) NEB SOLN NEB SCH ×3 (06:18→18:45)
[2022-06-12 06:22] LABS: Hematocrit 29.7 % (36.0-46.0); Hemoglobin 9.7 g/dL (12.2-16.2); Mean Corpuscular Hemoglobin 28.3 pg (28.0-32.0); Mean Corpuscular Hgb Conc. 32.8 g/dL (32.0-36.0); Mean Corpuscular Volume 86.4 fL (80.0-100.0); Red Blood Cells 3.44 10^6/uL (4.0-5.20); Red Cell Distribution Width 14.8 % (11.8-14.3); White Blood Cell 13.1 10^3/uL (4.4-10.8)
[2022-06-12 06:32] LABS: Basophils % (manual) 0 (0.0-2.0); Blast Cells 0; Eosinophils % (manual) 0 (0-7); Metamyelocytes % 0; Monocytes % (manual) 0 (0-12); Myelocytes % 0; Promyelocytes % 0; Reactive Lymphocytes 0
[2022-06-12 06:42] LABS: BUN/Creatinine Ratio 27.7; Calcium 7.6 mg/dL (8.5-10.1); Potassium 4.2 mmol/L (3.5-5.1)
[2022-06-12 06:57] LABS: Band Neutrophils % (manual) 1; Lymphocytes % (manual) 2 (10.0-50.0)
[2022-06-12] MEDS: Nepro With Carbsteady ButterPecan 8oz Carton PO SCH ×2 (08:00→18:56)
[2022-06-12 09:00] VITALS: BP 160/85
[2022-06-12] MEDS: NICOTINE 21MG/24 HR TOPICAL PATCH TD SCH (10:00)
[2022-06-12] MEDS: APIXABAN 5 MG TAB PO SCH ×3 (10:00→21:42)
[2022-06-12] MEDS: AMIODARONE HCL 200 MG TAB PO SCH ×2 (12:03→21:42)
[2022-06-12] MEDS: DOPamine 1600MCG/ML D5W 250 ML IV SCH (12:15)
[2022-06-12 13:00] VITALS: BP 149/74
[2022-06-12] MEDS: BUMETANIDE 2.5mg/10ml (0.25 mg/ml) INJ IV SCH ×2 (15:45→18:00)
[2022-06-12 17:00] VITALS: BP 160/72
[2022-06-12 20:00] VITALS: BP 156/68
[2022-06-12] MEDS: methylPREDNISolone SOD SUCC 40 MG/ML VL IV SCH (21:41)
[2022-06-12] MEDS: ATORVASTATIN 20 MG TAB PO SCH (21:42)
[2022-06-13 05:00] VITALS: BP 159/81
[2022-06-13] MEDS: SALINE 0.65 % NASAL SPRAY 45ML BOTTLE EACHNOSTRI SCH ×4 (05:14→22:06)
[2022-06-13] MEDS: PIPERACILLIN-TAZOB 2.25GM 50 ML IV SCH ×3 (05:15→18:27)
[2022-06-13] MEDS: [UNRECOGNIZED DRUG - OTHER] PO SCH ×3 (05:16→22:00)
[2022-06-13] MEDS: BUMETANIDE 2.5mg/10ml (0.25 mg/ml) INJ IV SCH ×2 (05:26→17:44)
[2022-06-13] MEDS: MORPHINE SULFATE INJ 2 MG/ml SYRG IV PRN (05:27)
[2022-06-13 05:33] LABS: Hematocrit 34.1 % (36.0-46.0); Hemoglobin 10.9 g/dL (12.2-16.2); Mean Corpuscular Hemoglobin 27.8 pg (28.0-32.0); Mean Corpuscular Volume 86.6 fL (80.0-100.0); Red Blood Cells 3.94 10^6/uL (4.0-5.20); Red Cell Distribution Width 15.2 % (11.8-14.3); White Blood Cell 17.5 10^3/uL (4.4-10.8)
[2022-06-13 05:51] LABS: Calcium 8.1 mg/dL (8.5-10.1); Potassium 3.9 mmol/L (3.5-5.1)
[2022-06-13 05:53] LABS: BUN/Creatinine Ratio 24.9
[2022-06-13 06:19] LABS: Basophils % (manual) 0 (0.0-2.0); Blast Cells 0; Eosinophils % (manual) 0 (0-7); Metamyelocytes % 0; Monocytes % (manual) 0 (0-12); Myelocytes % 0; Promyelocytes % 0; Reactive Lymphocytes 0
[2022-06-13] MEDS: IPRATROPIUM BROM 0.5 MG/2.5ML INH SOL NEB SCH ×2 (06:55→18:50)
[2022-06-13] MEDS: ALBUTEROL SULF 2.5 MG/0.5ML(0.5%) NEB SOLN NEB SCH ×2 (06:55→18:50)
[2022-06-13 08:00] VITALS: BP 144/74
[2022-06-13 08:37] LABS: Band Neutrophils % (manual) 3; Lymphocytes % (manual) 4 (10.0-50.0)
[2022-06-13] MEDS: AMIODARONE HCL 200 MG TAB PO SCH ×2 (09:25→21:59)
[2022-06-13] MEDS: NICOTINE 21MG/24 HR TOPICAL PATCH TD SCH (09:25)
[2022-06-13] MEDS: Nepro With Carbsteady ButterPecan 8oz Carton PO SCH ×2 (09:26→18:00)
[2022-06-13] MEDS: methylPREDNISolone SOD SUCC 40 MG/ML VL IV SCH ×2 (09:26→22:00)
[2022-06-13] MEDS: APIXABAN 5 MG TAB PO SCH ×2 (10:00→22:00)
[2022-06-13 12:00] VITALS: BP 160/97
[2022-06-13] MEDS ORDERED: MORPHINE SULFATE INJ 2 MG/ml SYRG IV PRN (13:30)
[2022-06-13] MEDS: DOPamine 1600MCG/ML D5W 250 ML IV SCH (14:05)
[2022-06-13 16:00] VITALS: BP 146/62
[2022-06-13] MEDS: HYDROcodone-ACET 5/325MG TAB PO PRN (18:28)
[2022-06-13] MEDS: ONDANSETRON HCL 4 MG/2 ML VIAL IV PRN (20:12)
[2022-06-13] MEDS: IPRATROPIUM BROM 0.5 MG/2.5ML INH SOL NEB PRN (21:59)
[2022-06-13] MEDS: ALBUTEROL SULF 2.5 MG/0.5ML(0.5%) NEB SOLN NEB PRN (21:59)
[2022-06-13] MEDS: ATORVASTATIN 20 MG TAB PO SCH (21:59)
[2022-06-13 22:00] VITALS: BP_SYST 147; BP_SYST 170; BP_DIAS 49; BP_DIAS 80
[2022-06-14] MEDS: PIPERACILLIN-TAZOB 2.25GM 50 ML IV SCH ×4 (00:37→18:00)
[2022-06-14 05:00] VITALS: BP 140/68
[2022-06-14] MEDS: ALBUTEROL SULF 2.5 MG/0.5ML(0.5%) NEB SOLN NEB SCH ×3 (05:41→19:07)
[2022-06-14] MEDS: IPRATROPIUM BROM 0.5 MG/2.5ML INH SOL NEB SCH ×3 (05:41→19:07)
[2022-06-14] MEDS: [UNRECOGNIZED DRUG - OTHER] PO SCH ×3 (05:48→21:54)
[2022-06-14] MEDS: SALINE 0.65 % NASAL SPRAY 45ML BOTTLE EACHNOSTRI SCH ×4 (05:48→21:54)
[2022-06-14] MEDS: BUMETANIDE 2.5mg/10ml (0.25 mg/ml) INJ IV SCH ×2 (05:48→17:59)
[2022-06-14] MEDS: methylPREDNISolone SOD SUCC 40 MG/ML VL IV SCH ×2 (08:36→21:54)
[2022-06-14] MEDS: NICOTINE 21MG/24 HR TOPICAL PATCH TD SCH (08:37)
[2022-06-14] MEDS: AMIODARONE HCL 200 MG TAB PO SCH ×2 (08:38→21:54)
[2022-06-14] MEDS: Nepro With Carbsteady ButterPecan 8oz Carton PO SCH ×2 (08:38→18:00)
[2022-06-14] MEDS: APIXABAN 5 MG TAB PO SCH ×2 (08:39→21:53)
[2022-06-14] MEDS: ONDANSETRON HCL 4 MG/2 ML VIAL IV PRN (08:40)
[2022-06-14 09:00] VITALS: BP 108/75
[2022-06-14 13:00] VITALS: BP 107/59
[2022-06-14] MEDS: guaiFENesin-CODEINE Liq 5 ML UD PO PRN ×2 (13:48→20:14)
[2022-06-14] MEDS: DOPamine 1600MCG/ML D5W 250 ML IV SCH (16:50)
[2022-06-14 17:00] VITALS: BP 120/53
[2022-06-14] MEDS: HYDROcodone-ACET 5/325MG TAB PO PRN (17:12)
[2022-06-14] MEDS: ATORVASTATIN 20 MG TAB PO SCH (21:53)
[2022-06-15] VITALS (8 sets, daily range): BP systolic 92–139; BP diastolic 49–70
[2022-06-15] MEDS: ALBUTEROL SULF 2.5 MG/0.5ML(0.5%) NEB SOLN NEB PRN (00:09)
[2022-06-15] MEDS: IPRATROPIUM BROM 0.5 MG/2.5ML INH SOL NEB PRN (00:09)
[2022-06-15] MEDS: HYDROcodone-ACET 5/325MG TAB PO PRN ×3 (00:10→18:16)
[2022-06-15] MEDS: PIPERACILLIN-TAZOB 2.25GM 50 ML IV SCH ×3 (00:13→12:07)
[2022-06-15] MEDS: BUMETANIDE 2.5mg/10ml (0.25 mg/ml) INJ IV SCH (05:54)
[2022-06-15] MEDS: guaiFENesin-CODEINE Liq 5 ML UD PO PRN ×3 (05:55→23:02)
[2022-06-15] MEDS: SALINE 0.65 % NASAL SPRAY 45ML BOTTLE EACHNOSTRI SCH ×4 (05:55→22:56)
[2022-06-15] MEDS: [UNRECOGNIZED DRUG - OTHER] PO SCH ×3 (05:55→22:00)
[2022-06-15] MEDS: IPRATROPIUM BROM 0.5 MG/2.5ML INH SOL NEB SCH ×3 (06:00→19:42)
[2022-06-15] MEDS: ALBUTEROL SULF 2.5 MG/0.5ML(0.5%) NEB SOLN NEB SCH ×3 (06:00→19:43)
[2022-06-15] MEDS: Nepro With Carbsteady ButterPecan 8oz Carton PO SCH ×2 (08:00→18:00)
[2022-06-15] MEDS: methylPREDNISolone SOD SUCC 40 MG/ML VL IV SCH (09:13)
[2022-06-15] MEDS: AMIODARONE HCL 200 MG TAB PO SCH ×2 (09:14→22:57)
[2022-06-15] MEDS: NICOTINE 21MG/24 HR TOPICAL PATCH TD SCH (09:15)
[2022-06-15] MEDS: APIXABAN 5 MG TAB PO SCH ×2 (09:15→22:59)
[2022-06-15] MEDS: DOXYCYCLINE 100 MG TAB/CAP PO SCH (23:00)
[2022-06-15] MEDS: ATORVASTATIN 20 MG TAB PO SCH (23:00)
[2022-06-16] MEDS: HYDROcodone-ACET 5/325MG TAB PO PRN ×4 (01:56→22:24)
[2022-06-16] MEDS: guaiFENesin-CODEINE Liq 5 ML UD PO PRN ×2 (04:45→16:29)
[2022-06-16 05:37] VITALS: BP 126/61
[2022-06-16] MEDS: [UNRECOGNIZED DRUG - OTHER] PO SCH ×3 (06:00→22:00)
[2022-06-16] MEDS: IPRATROPIUM BROM 0.5 MG/2.5ML INH SOL NEB SCH ×3 (06:09→18:51)
[2022-06-16] MEDS: ALBUTEROL SULF 2.5 MG/0.5ML(0.5%) NEB SOLN NEB SCH ×3 (06:09→18:51)
[2022-06-16 06:20] LABS: Eosinophils # (auto) 0 10 ^3/uL (0-0.8); Eosinophils % (auto) 0.1 % (0.0-7.0); Hematocrit 22.6 % (36.0-46.0); Lymphocytes # (auto) 0.8 10 ^3/uL (0.4-5.4); Neutrophils % (auto) 91.6 % (37.0-80.0); Red Blood Cells 2.59 10^6/uL (4.0-5.20)
[2022-06-16 06:22] LABS: Basophils # (auto) 0 10 ^3/uL (0-0.2); Basophils % (auto) 0.1 % (0.0-2.0); Hemoglobin 7.3 g/dL (12.2-16.2); Lymphocytes % (auto) 3.5 % (10.0-50.0); Mean Corpuscular Hemoglobin 28.3 pg (28.0-32.0); Mean Corpuscular Hgb Conc. 32.4 g/dL (32.0-36.0); Mean Corpuscular Volume 87.3 fL (80.0-100.0); Monocytes # (auto) 1.1 10 ^3/uL (0-1.3); Monocytes % (auto) 4.7 % (0.0-12.0); Neutrophils # (auto) 20.7 10 ^3/uL (1.6-8.6); Red Cell Distribution Width 15.2 % (11.8-14.3); White Blood Cell 22.6 10^3/uL (4.4-10.8)
[2022-06-16 06:30] LABS: Potassium 3.2 mmol/L (3.5-5.1)
[2022-06-16 06:38] LABS: BUN/Creatinine Ratio 18.3
[2022-06-16] MEDS: SALINE 0.65 % NASAL SPRAY 45ML BOTTLE EACHNOSTRI SCH ×4 (06:38→22:21)
[2022-06-16] MEDS ORDERED: BUMETANIDE 2.5mg/10ml (0.25 mg/ml) INJ IV SCH (07:00)
[2022-06-16] MEDS: Nepro With Carbsteady ButterPecan 8oz Carton PO SCH (08:00)
[2022-06-16 09:00] VITALS: BP 157/65
[2022-06-16] MEDS: APIXABAN 5 MG TAB PO SCH ×2 (09:45→22:00)
[2022-06-16] MEDS: DOXYCYCLINE 100 MG TAB/CAP PO SCH ×2 (09:46→22:24)
[2022-06-16] MEDS: NICOTINE 21MG/24 HR TOPICAL PATCH TD SCH (09:47)
[2022-06-16] MEDS: AMIODARONE HCL 200 MG TAB PO SCH ×2 (09:48→22:22)
[2022-06-16] MEDS ORDERED: predniSONE 20 MG TAB PO SCH (10:00)
[2022-06-16] MEDS ORDERED: POTASSIUM CHL 20 Meq TABLET PO ONE (12:45)
[2022-06-16 13:00] VITALS: BP 140/89
[2022-06-16] MEDS ORDERED: levoFLOXacin 500MG 100 ML IV ONE (13:00)
[2022-06-16 22:00] VITALS: BP 145/73
[2022-06-16] MEDS: ATORVASTATIN 20 MG TAB PO SCH (22:24)
[2022-06-17] VITALS (9 sets, daily range): BP systolic 117–166; BP diastolic 51–86
[2022-06-17] MEDS: guaiFENesin-CODEINE Liq 5 ML UD PO PRN (00:51)
[2022-06-17] MEDS: ONDANSETRON HCL 4 MG/2 ML VIAL IV PRN (04:35)
[2022-06-17] MEDS: HYDROcodone-ACET 5/325MG TAB PO PRN ×4 (04:38→22:14)
[2022-06-17 05:18] LABS: Basophils # (auto) 0 10 ^3/uL (0-0.2); Eosinophils # (auto) 0 10 ^3/uL (0-0.8); Eosinophils % (auto) 0.1 % (0.0-7.0); Hematocrit 21.5 % (36.0-46.0); Hemoglobin 7.1 g/dL (12.2-16.2); Lymphocytes # (auto) 0.7 10 ^3/uL (0.4-5.4); Lymphocytes % (auto) 3.2 % (10.0-50.0); Mean Corpuscular Hemoglobin 28.6 pg (28.0-32.0); Mean Corpuscular Hgb Conc. 32.9 g/dL (32.0-36.0); Mean Corpuscular Volume 86.9 fL (80.0-100.0); Monocytes % (auto) 4.4 % (0.0-12.0); Neutrophils # (auto) 20.9 10 ^3/uL (1.6-8.6); Neutrophils % (auto) 92.3 % (37.0-80.0); Red Blood Cells 2.47 10^6/uL (4.0-5.20); White Blood Cell 22.6 10^3/uL (4.4-10.8)
[2022-06-17 05:38] LABS: Potassium 3.4 mmol/L (3.5-5.1)
[2022-06-17 05:40] LABS: BUN/Creatinine Ratio 17.6
[2022-06-17] MEDS: ALBUTEROL SULF 2.5 MG/0.5ML(0.5%) NEB SOLN NEB SCH ×3 (06:00→19:08)
[2022-06-17] MEDS: SALINE 0.65 % NASAL SPRAY 45ML BOTTLE EACHNOSTRI SCH ×4 (06:00→21:30)
[2022-06-17] MEDS: IPRATROPIUM BROM 0.5 MG/2.5ML INH SOL NEB SCH ×3 (06:00→19:08)
[2022-06-17] MEDS: [UNRECOGNIZED DRUG - OTHER] PO SCH ×3 (06:00→21:24)
[2022-06-17] MEDS: Nepro With Carbsteady ButterPecan 8oz Carton PO SCH ×3 (07:38→18:00)
[2022-06-17] MEDS: AMIODARONE HCL 200 MG TAB PO SCH ×2 (09:28→21:29)
[2022-06-17] MEDS: BUMETANIDE 1 MG TAB PO SCH (09:28)
[2022-06-17] MEDS: DOXYCYCLINE 100 MG TAB/CAP PO SCH ×2 (09:29→21:27)
[2022-06-17] MEDS: levoFLOXacin 250MG 50 ML IV SCH (09:29)
[2022-06-17] MEDS: NICOTINE 21MG/24 HR TOPICAL PATCH TD SCH (09:30)
[2022-06-17] MEDS: APIXABAN 5 MG TAB PO SCH (09:51)
[2022-06-17] MEDS ORDERED: predniSONE 20 MG TAB PO SCH (10:00)
[2022-06-17] MEDS ORDERED: POTASSIUM CHL 20 Meq TABLET PO ONE (12:15)
[2022-06-17] MEDS: ATORVASTATIN 20 MG TAB PO SCH (21:29)
[2022-06-18] VITALS (10 sets, daily range): BP systolic 111–151; BP diastolic 37–67
[2022-06-18] MEDS: ONDANSETRON HCL 4 MG/2 ML VIAL IV PRN ×2 (00:34→17:50)
[2022-06-18] MEDS: SALINE 0.65 % NASAL SPRAY 45ML BOTTLE EACHNOSTRI SCH ×4 (05:21→22:00)
[2022-06-18] MEDS: [UNRECOGNIZED DRUG - OTHER] PO SCH ×3 (05:22→21:35)
[2022-06-18 06:25] LABS: Basophils # (auto) 0 10 ^3/uL (0-0.2); Basophils % (auto) 0.2 % (0.0-2.0); Eosinophils # (auto) 0.1 10 ^3/uL (0-0.8); Eosinophils % (auto) 0.3 % (0.0-7.0); Hematocrit 22.8 % (36.0-46.0); Hemoglobin 7.3 g/dL (12.2-16.2); Lymphocytes # (auto) 0.9 10 ^3/uL (0.4-5.4); Lymphocytes % (auto) 4.6 % (10.0-50.0); Mean Corpuscular Hemoglobin 28.4 pg (28.0-32.0); Mean Corpuscular Hgb Conc. 32.1 g/dL (32.0-36.0); Mean Corpuscular Volume 88.7 fL (80.0-100.0); Monocytes % (auto) 5.1 % (0.0-12.0); Neutrophils # (auto) 16.8 10 ^3/uL (1.6-8.6); Neutrophils % (auto) 89.8 % (37.0-80.0); Nucleated Red Blood Cells % 0.1 %; Red Blood Cells 2.57 10^6/uL (4.0-5.20); Red Cell Distribution Width 15.5 % (11.8-14.3); White Blood Cell 18.7 10^3/uL (4.4-10.8)
[2022-06-18 06:49] LABS: Calcium 7.8 mg/dL (8.5-10.1); Potassium 3.8 mmol/L (3.5-5.1)
[2022-06-18 06:50] LABS: BUN/Creatinine Ratio 18.7
[2022-06-18] MEDS: ALBUTEROL SULF 2.5 MG/0.5ML(0.5%) NEB SOLN NEB SCH ×3 (07:01→18:42)
[2022-06-18] MEDS: IPRATROPIUM BROM 0.5 MG/2.5ML INH SOL NEB SCH ×3 (07:01→18:42)
[2022-06-18] MEDS: Nepro With Carbsteady ButterPecan 8oz Carton PO SCH ×2 (08:42→18:01)
[2022-06-18] MEDS: predniSONE 20 MG TAB PO SCH (08:42)
[2022-06-18] MEDS: HYDROcodone-ACET 5/325MG TAB PO PRN ×3 (08:43→20:02)
[2022-06-18] MEDS: AMIODARONE HCL 200 MG TAB PO SCH ×2 (08:43→21:34)
[2022-06-18] MEDS: NICOTINE 21MG/24 HR TOPICAL PATCH TD SCH (08:43)
[2022-06-18] MEDS: DOXYCYCLINE 100 MG TAB/CAP PO SCH ×2 (08:43→21:34)
[2022-06-18] MEDS: BUMETANIDE 1 MG TAB PO SCH (08:43)
[2022-06-18] MEDS: levoFLOXacin 250MG 50 ML IV SCH (11:45)
[2022-06-18] MEDS: ATORVASTATIN 20 MG TAB PO SCH (21:34)
[2022-06-18] MEDS: guaiFENesin-CODEINE Liq 5 ML UD PO PRN (21:35)
[2022-06-19 04:47] VITALS: BP 151/62
[2022-06-19] MEDS: HYDROcodone-ACET 5/325MG TAB PO PRN ×3 (05:43→16:33)
[2022-06-19] MEDS: SALINE 0.65 % NASAL SPRAY 45ML BOTTLE EACHNOSTRI SCH ×2 (06:00→12:00)
[2022-06-19] MEDS: IPRATROPIUM BROM 0.5 MG/2.5ML INH SOL NEB SCH ×2 (06:00→16:17)
[2022-06-19] MEDS: [UNRECOGNIZED DRUG - OTHER] PO SCH ×2 (06:00→14:00)
[2022-06-19 07:05] LABS: Hematocrit 26.6 % (36.0-46.0); Hemoglobin 8.5 g/dL (12.2-16.2); Mean Corpuscular Hemoglobin 28.5 pg (28.0-32.0); Mean Corpuscular Hgb Conc. 31.9 g/dL (32.0-36.0); Mean Corpuscular Volume 89.3 fL (80.0-100.0); Red Blood Cells 2.97 10^6/uL (4.0-5.20); Red Cell Distribution Width 16.4 % (11.8-14.3)
[2022-06-19 07:20] LABS: Basophils % (manual) 0 (0.0-2.0); Blast Cells 0; Metamyelocytes % 0; Promyelocytes % 0; Reactive Lymphocytes 0
[2022-06-19 07:23] LABS: BUN/Creatinine Ratio 15.7; Calcium 8.3 mg/dL (8.5-10.1); Potassium 3.9 mmol/L (3.5-5.1)
[2022-06-19 08:00] VITALS: BP 117/44
[2022-06-19] MEDS: Nepro With Carbsteady ButterPecan 8oz Carton PO SCH (08:00)
[2022-06-19 09:00] VITALS: BP 117/44
[2022-06-19] MEDS: levoFLOXacin 250MG 50 ML IV SCH (10:22)
[2022-06-19] MEDS: DOXYCYCLINE 100 MG TAB/CAP PO SCH (10:22)
[2022-06-19] MEDS: AMIODARONE HCL 200 MG TAB PO SCH (10:23)
[2022-06-19] MEDS: BUMETANIDE 1 MG TAB PO SCH (10:23)
[2022-06-19] MEDS: NICOTINE 21MG/24 HR TOPICAL PATCH TD SCH (10:23)
[2022-06-19] MEDS: predniSONE 20 MG TAB PO SCH (10:23)
[2022-06-19 13:00] VITALS: BP 111/66
[2022-06-19 13:11] LABS: Band Neutrophils % (manual) 9; Eosinophils % (manual) 1 (0-7); Lymphocytes % (manual) 12 (10.0-50.0); Monocytes % (manual) 3 (0-12); Myelocytes % 1
[2022-06-19 16:07] VITALS: BP 111/66
[2022-06-19] MEDS: ALBUTEROL SULF 2.5 MG/0.5ML(0.5%) NEB SOLN NEB SCH ×2 (16:17→16:20)
[2022-06-19 17:00] VITALS: BP 142/69
== END 2022-06-19 18:10 | disposition home or self-care (01) | DRG 871 ==
LOC: EDBD 06:42 → ER 06:42 → TELE 10:28 → TELE-CENTR 22:07 → TELE-WESTW 06-08 11:47
PROVIDERS: ADMIT Registered Nurse; ATTEND Internal Medicine
PROC: 05HB33Z Insertion of Infusion Device into Right Basilic Vein, Percutaneous Approach (ICD-10-PCS; 2022-06-10)
PROC: B54MZZA Ultrasonography of Right Upper Extremity Veins, Guidance (ICD-10-PCS; 2022-06-10)
PROC: 5A09357 Assistance with Respiratory Ventilation, Less than 24 Consecutive Hours, Continuous Positive Airway Pressure (ICD-10-PCS; 2022-06-13)
PROC: 30233N1 Transfusion of Nonautologous Red Blood Cells into Peripheral Vein, Percutaneous Approach (ICD-10-PCS; principal; 2022-06-17)
DX: A41.9 Sepsis, unspecified organism (principal); I21.A1 Myocardial infarction type 2; J18.9 Pneumonia, unspecified organism; I50.43 Acute on chronic combined systolic (congestive) and diastolic (congestive) heart failure; J96.21 Acute and chronic respiratory failure with hypoxia; N17.0 Acute kidney failure with tubular necrosis; J44.1 Chronic obstructive pulmonary disease with (acute) exacerbation; N18.4 Chronic kidney disease, stage 4 (severe); N39.0 Urinary tract infection, site not specified; D68.69 Other thrombophilia; J44.0 Chronic obstructive pulmonary disease with (acute) lower respiratory infection; I13.0 Hypertensive heart and chronic kidney disease with heart failure and stage 1 through stage 4 chronic kidney disease, or unspecified chronic kidney disease; E44.0 Moderate protein-calorie malnutrition; E03.9 Hypothyroidism, unspecified; E66.9 Obesity, unspecified; I25.10 Atherosclerotic heart disease of native coronary artery without angina pectoris; I48.0 Paroxysmal atrial fibrillation; R73.03 Prediabetes; D64.9 Anemia, unspecified; Z20.822 Contact with and (suspected) exposure to COVID-19; F17.200 Nicotine dependence, unspecified, uncomplicated; E05.90 Thyrotoxicosis, unspecified without thyrotoxic crisis or storm; E87.5 Hyperkalemia; D69.6 Thrombocytopenia, unspecified; R04.0 Epistaxis; E78.5 Hyperlipidemia, unspecified; Z95.0 Presence of cardiac pacemaker; Z80.0 Family history of malignant neoplasm of digestive organs; Z82.0 Family history of epilepsy and other diseases of the nervous system; Z90.710 Acquired absence of both cervix and uterus; Z98.61 Coronary angioplasty status; Z99.81 Dependence on supplemental oxygen; Z90.49 Acquired absence of other specified parts of digestive tract; Z88.8 Allergy status to other drugs, medicaments and biological substances; Z68.35 Body mass index [BMI] 35.0-35.9, adult; Z71.6 Tobacco abuse counseling
CPT/HCPCS: 36415; 36600; 71045; 74176; 76775; 80048; 80053; 80061; 81001; 82550; 82570; 82805; 82962; 83036; 83735; 83880; 84156; 84300; 84439; 84443; 84480; 84484; 85007; 85025; 85027; 85610; 85730; 86850; 86900; 86901; 86920; 87040; 87086; 87426; 87804; 93005; 93306; 94640; 94660; 96365; 96372; 96375; 97110; 97116; 97163; 97530; 99291; G0378; J0696; J1956; J2405; J2543; P9047